=== PATIENT | female | born 1965 | race Caucasian/White ===

== ENCOUNTER 2019-05-22 14:22 | Inpatient (IN) | payer BC ==
[2019-05-22] MEDS ORDERED: Pantoprazole 40 MG Vial IVPUSH ONE (15:22)
--- NOTE | 2019-05-22 15:27 | EDM.PDOC ---
ED HPI GENERAL MEDICAL PROBLEM - General Chief Complaint: General Stated Complaint: SENT FROM CLINIC FOR BLOOD TRANSFUSION Time Seen by Provider: 05/22/19 15:21 Source of Information: Reports: Patient History Limitations: Reports: No Limitations - History of Present Illness INITIAL COMMENTS - FREE TEXT/NARRATIVE: 54-year-old female presents to the ED with a history of intermittent black tarry stools for the better part of a week. Associated diffuse upper abdominal pain starting last April 14. Started black tarry stools on April 19. On average 2 or 3 black stools per day including this morning. She did not eat last or Tuesday because she felt upset on the stomach. Associated nausea without vomiting. She never did vomit any blood. She has no history of peptic ulcer disease or although she was told in the past that she did have H. pylori infection and was treated with antibiotics many years ago. Intermittent upper abdominal cramping pain as well as intermittent lower abdominal pain this morning. She took milk of magnesia last night to get her bowels working and did have a bowel movement about 0330 and again at 0800 hrs. this morning both of which were dark black in color. The first bowel movement that was black was last Tuesday and it contains a small traces of bright red blood. Of note the patient had an anterior dislocation of her right shoulder on May 01 and has been taking intermittent low doses of Aleve as needed primarily at bedtime to help with the pain. Therefore this could have been the culprit to cause an upper GI bleed. Been taking any of her regular medications due to GI upset. Feeling lightheaded and dizzy today. She attended the clinic family medicine unit in our hospital and was found to have a hemoglobin around 7. She was thus referred to the ED for further evaluation and treatment. Onset: Gradual Onset Date: 05/13/19 (With GI upset and pain and cramps April 14 first noted dark black starry stools on April 19.) Duration: Day(s):, Constant (Stools have been black and tarry since the .) , Intermittent, Waxing/Waning Location: Reports: Abdomen, Other (Abdominal discomfort melena stool) Quality: Reports: Ache (Mostly in the epigastrium with occasional sharp stabbing pains) Severity: Moderate Improves with: Reports: None Worsens with: Reports: None Context: Denies: Activity, Exercise, Lifting, Sick Contact, Trauma, Other Associated Symptoms: Reports: Loss of Appetite, Malaise, Shortness of Breath, Weakness, Other (Mildly lightheaded and dizzy today.). 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 (Has been taking Aleve as needed since dislocation of her anterior shoulder May 01.) - Related Data Allergies Allergy/AdvReac Type Severity Reaction Status Date / Time No Known Allergies Allergy Verified 05/22/19 15:16 Home Meds: Home Meds Ezetimibe 10 mg PO BEDTIME 05/22/19 [History] Pravastatin [Pravachol] 20 mg PO MOWEFR 05/22/19 [History] Past Medical History Cardiovascular History: Reports: High Cholesterol (Hypertriglyceridemia) - Past Surgical History GI Surgical History: Reports: Appendectomy (1982) Social & Family History - Living Situation & Occupation Living situation: Reports: Occupation: Unemployed ED ROS GENERAL - Review of Systems Review Of Systems: See Below Constitutional: Reports: Malaise, Weakness, Fatigue, Decreased Appetite. Denies : Fever, Chills HEENT: Reports: Glasses Respiratory: Reports: Shortness of Breath. Denies: Wheezing, Pleuritic Chest Pain, Cough, Sputum Cardiovascular: Reports: Dyspnea on Exertion. Denies: Chest Pain, Blood Pressure Problem, Claudication, Edema, Lightheadedness, Orthopnea Endocrine: Reports: Fatigue GI/Abdominal: Reports: Abdominal Pain (Intermittent epigastric abdominal pain as well as some diffuse lower abdominal cramping pain), Melena (Stool off and on on a daily basis since last April 19.) : Reports: No Symptoms Musculoskeletal: Reports: No Symptoms Skin: Reports: No Symptoms Neurological: Reports: Dizziness Psychiatric: Reports: No Symptoms Hematologic/Lymphatic: Reports: No Symptoms Immunologic: Reports: No Symptoms ED EXAM, GENERAL - Physical Exam Exam: See Below Exam Limited By: No Limitations General Appearance: Alert, WD/WN, Mild Distress, Other (She is obviously quite pallid in appearance. Temperature is 36.4 with a heart rate of 92 at the bedside respiratory 20 BP 126/77 with a pulse symmetry of 99.) Eye Exam: Bilateral Eye: Other (Patient has white blepharal pallor.) Ears: Normal TMs Throat/Mouth: Normal Inspection, Normal Lips, Normal Teeth, Normal Oropharynx, Other Head: Atraumatic, Normocephalic, Other Neck: Normal Inspection, Supple (No outward signs of head or facial trauma), Non -Tender, Full Range of Motion. No: Lymphadenopathy (L), Lymphadenopathy (R) Respiratory/Chest: No Respiratory Distress, Lungs Clear, Normal Breath Sounds, No Accessory Muscle Use Cardiovascular: Normal Peripheral Pulses, Regular Rate, Rhythm, No Edema, No Gallop, No Murmur, No Rub Peripheral Pulses: 3+: Posterior Tibial (L), Posterior Tibial (R), Dorsalis Pedis (L), Dorsalis Pedis (R) GI/Abdominal: Normal Bowel Sounds, Soft, No Organomegaly, No Abnormal Bruit, No Mass, Pelvis Stable, Tender (He is slightly tender to deep palpation in the epigastrium.) Rectal (Female) Exam: Heme + Stool (Melena stool) Extremities: Normal Inspection, Normal Range of Motion, Non-Tender, No Pedal Edema Neurological: Alert, Oriented, CN II-XII Intact, Normal Cognition, Normal Gait Psychiatric: Normal Affect, Normal Mood Skin Exam: Warm, Dry, Intact, Pallor (Moderate pallor.) Course - Vital Signs Last Recorded V/S: Last Vital Signs Temp 36.4 C 05/22/19 15:02 Pulse 92 05/22/19 15:02 Resp 20 05/22/19 15:02 BP 126/77 05/22/19 15:02 Pulse Ox 99 05/22/19 15:02 Orthostatic Blood Pressure [ 98/65 Standing] Orthostatic Blood Pressure [ 108/67 Sitting] Orthostatic Blood Pressure [ 105/67 Supine] - Orders/Labs/Meds Orders: Active Orders 24 hr Category Date Time Status Admission Status [Patient Status] [ADT] Routine ADT 05/22/19 19:00 Active Orthostatic Vital Signs [RC] ASDIRECTED Care 05/22/19 15:51 Active H.PYLORI ANTIGEN, STOOL [OP] Stat Lab 05/22/19 15:24 Ordered PACKED CELLS [RED BLOOD CELLS LP] [BBK] Stat Lab 05/22/19 16:45 Results TYPE AND SCREEN [BBK] Stat Lab 05/22/19 16:45 Results Dextrose 5%-0.9% NaCl [Dextrose 5%-Normal Saline] 1,000 Med 05/22/19 15:30 Active ml IV ASDIRECTED Pantoprazole [ProTONIX IV] 80 mg Med 05/22/19 15:30 Active Sodium Chloride 0.9% [Normal Saline] 100 ml IV Q10H Transfuse PRBC [Transfuse Red Blood Cells] [COMM] Stat Oth 05/22/19 17:55 Ordered Medication Orders Dextrose/Sodium Chloride (Dextrose 5%-Normal Saline) 1,000 mls @ 500 mls/hr IV ASDIRECTED JESSE Last Admin: 05/22/19 16:37 Dose: 500 mls/hr Pantoprazole Sodium 80 mg/ (Sodium Chloride) 100 mls @ 10 mls/hr IV Q10H [facility] Last Admin: 05/22/19 16:38 Dose: 10 mls/hr Labs: Laboratory Tests 05/22/19 05/22/19 05/22/19 Range/Units 16:45 16:45 16:45 WBC 8.38 (3.98-10.04) K/mm3 RBC 2.56 L (3.98-5.22) M/mm3 Hgb 7.1 L* (11.2-15.7) gm/dl Hct 22.6 L (34.1-44.9) % MCV 88.3 (79.4-94.8) fl MCH 27.7 (25.6-32.2) pg MCHC 31.4 L (32.2-35.5) g/dl RDW Std Deviation 49.6 H (36.4-46.3) fL Plt Count 310 (182-369) K/mm3 MPV 9.2 L (9.4-12.3) fl Neut % (Auto) 50.8 (34.0-71.1) % Lymph % (Auto) 39.0 (19.3-51.7) % [place] % (Auto) 7.4 (4.7-12.5) % Eos % (Auto) 2.0 (0.7-5.8) Baso % (Auto) 0.4 (0.1-1.2) % Neut # (Auto) 4.26 (1.56-6.13) K/mm3 Lymph # (Auto) 3.27 (1.18-3.74) K/mm3 [place] # (Auto) 0.62 H (0.24-0.36) K/mm3 Eos # (Auto) 0.17 (0.04-0.36) K/mm3 Baso # (Auto) 0.03 (0.01-0.08) K/mm3 Manual Slide Review Abnormal smear ESR (0-20) mm/hr PT 10.8 (9.7-12.0) SECONDS INR 0.99 APTT 22 (22-31) SECONDS Sodium 138 (136-145) mEq/L Potassium 3.6 (3.5-5.1) mEq/L Chloride 103 (98-107) mEq/L Carbon Dioxide 26 (21-32) mEq/L Anion Gap 12.6 (5-15) BUN 13 (7-18) mg/dL Creatinine 0.8 (0.55-1.02) mg/dL Est Cr Clr Drug Dosing 77.27 mL/min Estimated GFR (MDRD) > 60 (>60) mL/min BUN/Creatinine Ratio 16.3 (14-18) Glucose 125 H (74-106) mg/dL Calcium 8.5 (8.5-10.1) mg/dL Magnesium 2.2 (1.8-2.4) mg/dl Total Bilirubin 0.3 (0.2-1.0) mg/dL AST 15 (15-37) U/L ALT 25 (14-59) U/L Alkaline Phosphatase 40 L (46-116) U/L Total Protein 6.4 (6.4-8.2) g/dl Albumin 3.3 L (3.4-5.0) g/dl Globulin 3.1 gm/dL Albumin/Globulin Ratio 1.1 (1-2) Lipase 128 (73-393) U/L Urine Color (Yellow) Urine Appearance (Clear) Urine pH (5.0-8.0) Ur Specific [place] (1.005-1.030) Urine Protein (Negative) Urine Glucose (UA) (Negative) Urine Ketones (Negative) Urine Occult Blood (Negative) Urine Nitrite (Negative) Urine Bilirubin (Negative) Urine Urobilinogen (0.2-1.0) Ur Leukocyte Esterase (Negative) Urine RBC (0-5) /hpf Urine WBC (0-5) /hpf Ur Squamous Epith Cells (0-5) /hpf Urine Bacteria (FEW) /hpf Urine Mucus (FEW) /hpf Blood Type Gel Antibody Screen Crossmatch 05/22/19 05/22/19 05/22/19 Range/Units 16:45 16:45 17:30 WBC (3.98-10.04) K/mm3 RBC (3.98-5.22) M/mm3 Hgb (11.2-15.7) gm/dl Hct (34.1-44.9) % MCV (79.4-94.8) fl MCH (25.6-32.2) pg MCHC (32.2-35.5) g/dl RDW Std Deviation (36.4-46.3) fL Plt Count (182-369) K/mm3 MPV (9.4-12.3) fl Neut % (Auto) (34.0-71.1) % Lymph % (Auto) (19.3-51.7) % [place] % (Auto) (4.7-12.5) % Eos % (Auto) (0.7-5.8) Baso % (Auto) (0.1-1.2) % Neut # (Auto) (1.56-6.13) K/mm3 Lymph # (Auto) (1.18-3.74) K/mm3 [place] # (Auto) (0.24-0.36) K/mm3 Eos # (Auto) (0.04-0.36) K/mm3 Baso # (Auto) (0.01-0.08) K/mm3 Manual Slide Review ESR 22 H (0-20) mm/hr PT (9.7-12.0) SECONDS INR APTT (22-31) SECONDS Sodium (136-145) mEq/L Potassium (3.5-5.1) mEq/L Chloride (98-107) mEq/L Carbon Dioxide (21-32) mEq/L Anion Gap (5-15) BUN (7-18) mg/dL Creatinine (0.55-1.02) mg/dL Est Cr Clr Drug Dosing mL/min Estimated GFR (MDRD) (>60) mL/min BUN/Creatinine Ratio (14-18) Glucose (74-106) mg/dL Calcium (8.5-10.1) mg/dL Magnesium (1.8-2.4) mg/dl Total Bilirubin (0.2-1.0) mg/dL AST (15-37) U/L ALT (14-59) U/L Alkaline Phosphatase (46-116) U/L Total Protein (6.4-8.2) g/dl Albumin (3.4-5.0) g/dl Globulin gm/dL Albumin/Globulin Ratio (1-2) Lipase (73-393) U/L Urine Color Light yellow (Yellow) Urine Appearance Clear (Clear) Urine pH 6.5 (5.0-8.0) Ur Specific [place] 1.020 (1.005-1.030) Urine Protein Negative (Negative) Urine Glucose (UA) Negative (Negative) Urine Ketones Trace H (Negative) Urine Occult Blood Trace-intact H (Negative) Urine Nitrite Negative (Negative) Urine Bilirubin Negative (Negative) Urine Urobilinogen 0.2 (0.2-1.0) Ur Leukocyte Esterase Trace H (Negative) Urine RBC 0-5 (0-5) /hpf Urine WBC 0-5 (0-5) /hpf Ur Squamous Epith Cells 10-20 H (0-5) /hpf Urine Bacteria Rare (FEW) /hpf Urine Mucus Not seen (FEW) /hpf Blood Type O POSITIVE Gel Antibody Screen Negative Crossmatch See Detail Meds: Medications Generic Name Dose Route Start Last Admin Trade Name Freq PRN Reason Stop Dose Admin Dextrose/Sodium Chloride 1,000 mls @ 500 mls/hr 05/22/19 15:30 05/22/19 16:37 Dextrose 5%-Normal Saline IV 500 mls/hr ASDIRECTED JESSE Administration Pantoprazole Sodium 80 mg/ 100 mls @ 10 mls/hr 05/22/19 15:30 05/22/19 16:38 Sodium Chloride IV 10 mls/hr Q10H JESSE Administration Discontinued Medications Generic Name Dose Route Start Last Admin Trade Name Freq PRN Reason Stop Dose Admin Pantoprazole Sodium 40 mg 05/22/19 15:22 05/22/19 16:37 Protonix Iv IVPUSH 05/22/19 15:23 40 mg ONETIME ONE Administration - Radiology Interpretation Free Text/Narrative:: 54-year-old female presents to the ED with a least 5-day history of passage of dark black tarry stools preceded by epigastric abdominal pain by 5 days. Patient has a past history of H. pylori peptic ulcer disease treated with antibiotics many years ago. On April 29 she had an anterior dislocation of her right shoulder and was using Aleve on a as needed basis for pain relief. It appears that she has suffered an upper GI bleed which is persisting as she continues to have black tarry stools for the last 5 days it with a hemoglobin reportedly down in the sevens. - Re-Assessments/Exams Free Text/Narrative Re-Assessment/Exam: 05/22/19 17:08 White blood cell count is normal at 8.38. The auto differential shows 51% neutrophils. Hemoglobin is low at 7.1 with hematocrit of 22.6. MCV is 88.3. Platelet count is 310,000. This was discussed with on-call surgeon Dr. Estevez and she states she is around tomorrow and could perform a upper GI endoscopy on this lady. We will therefore discussed the case with Dr. Tavarez on-call hospitalist with a view to having the patient admitted to the hospital. Due to being on Protonix infusion and the need for blood transfusion she will be admitted to the intensive care unit. 05/22/19 17:42 Chemistry reveals a sodium of 138 potassium of 3.6 chloride is 103 with a bicarb of 26. Anion gap is 12.6. BUN is 13 with a creatinine of 0.8. GFR is greater than 60. Glucose is 125 calcium is 8.5 magnesium normal at 2.2 liver function is normal. Total protein is 6.4 with an albumin fraction of 3.3. Lipase is 128. Departure - Departure Time of Disposition: 19:03 Disposition: Admitted As Inpatient 65 Condition: Fair Clinical Impression: Upper gastrointestinal bleeding, Hypertriglyceridemia Anemia Qualifiers: Other causes of anemia: acute posthemorrhagic - Discharge Information *PRESCRIPTION DRUG MONITORING PROGRAM REVIEWED*: Not Applicable *COPY OF PRESCRIPTION DRUG MONITORING REPORT IN PATIENT JACQUES: Not Applicable Referrals: Alek Moralez MD [Primary Care Provider] - Forms: ED Department Discharge Sepsis Event Note - Evaluation Sepsis Screening Result: No Definite Risk - Focused Exam Vital Signs: Vital Signs Temp Pulse Resp BP Pulse Ox 05/22/19 15:02 36.4 C 92 20 126/77 99 Date Exam was Performed: 03/10/20 Time Exam was Performed: 19:03 - My Orders Last 24 Hours: My Active Orders 05/22/19 15:24 H.PYLORI ANTIGEN, STOOL [OP] Stat 05/22/19 15:30 Dextrose 5%-0.9% NaCl [Dextrose 5%-Normal Saline] 1,000 ml IV ASDIRECTED Pantoprazole [ProTONIX IV] 80 mg Sodium Chloride 0.9% [Normal Saline] 100 ml IV Q10H 05/22/19 15:51 Orthostatic Vital Signs [RC] ASDIRECTED 05/22/19 16:45 PACKED CELLS [RED BLOOD CELLS LP] [BBK] Stat TYPE AND SCREEN [BBK] Stat 05/22/19 17:55 Transfuse PRBC [Transfuse Red Blood Cells] [COMM] Stat 05/22/19 19:00 Admission Status [Patient Status] [ADT] Routine - Assessment/Plan Last 24 Hours: My Active Orders 05/22/19 15:24 H.PYLORI ANTIGEN, STOOL [OP] Stat 05/22/19 15:30 Dextrose 5%-0.9% NaCl [Dextrose 5%-Normal Saline] 1,000 ml IV ASDIRECTED Pantoprazole [ProTONIX IV] 80 mg Sodium Chloride 0.9% [Normal Saline] 100 ml IV Q10H 05/22/19 15:51 Orthostatic Vital Signs [RC] ASDIRECTED 05/22/19 16:45 PACKED CELLS [RED BLOOD CELLS LP] [BBK] Stat TYPE AND SCREEN [BBK] Stat 05/22/19 17:55 Transfuse PRBC [Transfuse Red Blood Cells] [COMM] Stat 05/22/19 19:00 Admission Status [Patient Status] [ADT] Routine
[2019-05-22] MEDS ORDERED: Dextrose 5%-0.9% NaCl 1,000 ML IV SCH (15:30)
[2019-05-22] MEDS ORDERED: Pantoprazole 80 MG in Sodium Chloride 0.9% 100 ML IV SCH (15:30)
--- NOTE | 2019-05-22 18:33 | PCM.CONS ---
H&P History of Present Illness - General Date of Service: 05/22/19 - History of Present Illness Initial Comments - Free Text/Narative: Pt presents with history of abdominal pain, with lightheadedness and melena. Pain started 9d ago in the epigastric abdomen and radiated to the back. Pain described as burning. She reports intermittent nausea. Pain was sometimes improved with eating or drinking, intermittently improved with position change. She was seen at an outside clinic for the abdominal pain and discomfort, she was given anti-nausea medication which then induced vomiting. She developed melena and diarrhea about 5 days ago. Recent shoulder dislocation and has been taking aleve. She has a remote history of H. Pylori infection. - Related Data Allergies/Adverse Reactions: Allergies Allergy/AdvReac Type Severity Reaction Status Date / Time No Known Allergies Allergy Verified 05/22/19 15:16 Home Medications: Home Meds Ezetimibe 10 mg PO BEDTIME 05/22/19 [History] Pravastatin [Pravachol] 20 mg PO MOWEFR 05/22/19 [History] Past Medical History Cardiovascular History: Reports: High Cholesterol (Hypertriglyceridemia) - Infectious Disease History Infectious Disease History: Reports: Chicken Pox - Past Surgical History GI Surgical History: Reports: Appendectomy (1982) Social & Family History - Family History Cardiac: Reports: CAD, Heart Failure, Heart Valve Replacement, High Cholesterol , Hypertension Endocrine/Metabolic: Reports: Diabetes, type II Oncologic: Reports: None - Tobacco Use Smoking Status *Q: Never Smoker Second Hand Smoke Exposure: No - Caffeine Use Caffeine Use: Reports: Soda, Tea - Recreational Drug Use Recreational Drug Use: No - Living Situation & Occupation Living situation: Reports: Occupation: Unemployed H&P Review of Systems - Review of Systems: Review Of Systems: See Below General: Reports: Chills (associated with the pain), Weight Loss HEENT: Reports: No Symptoms Pulmonary: Reports: Cough Cardiovascular: Reports: Palpitations Gastrointestinal: Reports: Abdominal Pain, Black Stool, Diarrhea Genitourinary: Reports: No Symptoms Musculoskeletal: Denies: Neck Pain Skin: Reports: No Symptoms Neurological: Reports: Dizziness Hematologic/Lymphatic: Denies: Anemia Exam - Exam Exam: See Below - Vital Signs Vital Signs: Last Vital Signs Temp 36.4 C 05/22/19 15:02 Pulse 92 05/22/19 15:02 Resp 20 05/22/19 15:02 BP 126/77 05/22/19 15:02 Pulse Ox 99 05/22/19 15:02 Orthostatic Blood Pressure [ 98/65 Standing] Orthostatic Blood Pressure [ 108/67 Sitting] Orthostatic Blood Pressure [ 105/67 Supine] Weight: 77.111 kg - Exam Quality Assessment: No: Supplemental Oxygen General: Alert, Oriented HEENT: Conjunctiva Clear, EOMI Neck: Supple Lungs: Normal Respiratory Effort Cardiovascular: Regular Rate, Regular Rhythm GI/Abdominal Exam: Soft, No Distention, Tender (minimal in epigastric) Extremities: Normal Inspection, No Pedal Edema Peripheral Pulses: 2+: Dorsalis Pedis (L), Dorsalis Pedis (R) Skin: Warm, Dry, Intact Neurological: Cranial Nerves Intact Neuro Extensive - Mental Status: Normal Mood/Affect, Memory Intact - Patient Data Lab Results Last 24 hrs: Laboratory Results - last 24 hr 05/22/19 05/22/19 05/22/19 Range/Units 16:45 16:45 16:45 WBC 8.38 (3.98-10.04) K/mm3 RBC 2.56 L (3.98-5.22) M/mm3 Hgb 7.1 L* (11.2-15.7) gm/dl Hct 22.6 L (34.1-44.9) % MCV 88.3 (79.4-94.8) fl MCH 27.7 (25.6-32.2) pg MCHC 31.4 L (32.2-35.5) g/dl RDW Std Deviation 49.6 H (36.4-46.3) fL Plt Count 310 (182-369) K/mm3 MPV 9.2 L (9.4-12.3) fl Neut % (Auto) 50.8 (34.0-71.1) % Lymph % (Auto) 39.0 (19.3-51.7) % [place] % (Auto) 7.4 (4.7-12.5) % Eos % (Auto) 2.0 (0.7-5.8) Baso % (Auto) 0.4 (0.1-1.2) % Neut # (Auto) 4.26 (1.56-6.13) K/mm3 Lymph # (Auto) 3.27 (1.18-3.74) K/mm3 [place] # (Auto) 0.62 H (0.24-0.36) K/mm3 Eos # (Auto) 0.17 (0.04-0.36) K/mm3 Baso # (Auto) 0.03 (0.01-0.08) K/mm3 Manual Slide Review Abnormal smear ESR (0-20) mm/hr PT 10.8 (9.7-12.0) SECONDS INR 0.99 APTT 22 (22-31) SECONDS Sodium 138 (136-145) mEq/L Potassium 3.6 (3.5-5.1) mEq/L Chloride 103 (98-107) mEq/L Carbon Dioxide 26 (21-32) mEq/L Anion Gap 12.6 (5-15) BUN 13 (7-18) mg/dL Creatinine 0.8 (0.55-1.02) mg/dL Est Cr Clr Drug Dosing 77.27 mL/min Estimated GFR (MDRD) > 60 (>60) mL/min BUN/Creatinine Ratio 16.3 (14-18) Glucose 125 H (74-106) mg/dL Calcium 8.5 (8.5-10.1) mg/dL Magnesium 2.2 (1.8-2.4) mg/dl Total Bilirubin 0.3 (0.2-1.0) mg/dL AST 15 (15-37) U/L ALT 25 (14-59) U/L Alkaline Phosphatase 40 L (46-116) U/L Total Protein 6.4 (6.4-8.2) g/dl Albumin 3.3 L (3.4-5.0) g/dl Globulin 3.1 gm/dL Albumin/Globulin Ratio 1.1 (1-2) Lipase 128 (73-393) U/L Urine Color (Yellow) Urine Appearance (Clear) Urine pH (5.0-8.0) Ur Specific [place] (1.005-1.030) Urine Protein (Negative) Urine Glucose (UA) (Negative) Urine Ketones (Negative) Urine Occult Blood (Negative) Urine Nitrite (Negative) Urine Bilirubin (Negative) Urine Urobilinogen (0.2-1.0) Ur Leukocyte Esterase (Negative) Urine RBC (0-5) /hpf Urine WBC (0-5) /hpf Ur Squamous Epith Cells (0-5) /hpf Urine Bacteria (FEW) /hpf Urine Mucus (FEW) /hpf Blood Type Crossmatch 05/22/19 05/22/19 05/22/19 Range/Units 16:45 16:45 17:30 WBC (3.98-10.04) K/mm3 RBC (3.98-5.22) M/mm3 Hgb (11.2-15.7) gm/dl Hct (34.1-44.9) % MCV (79.4-94.8) fl MCH (25.6-32.2) pg MCHC (32.2-35.5) g/dl RDW Std Deviation (36.4-46.3) fL Plt Count (182-369) K/mm3 MPV (9.4-12.3) fl Neut % (Auto) (34.0-71.1) % Lymph % (Auto) (19.3-51.7) % [place] % (Auto) (4.7-12.5) % Eos % (Auto) (0.7-5.8) Baso % (Auto) (0.1-1.2) % Neut # (Auto) (1.56-6.13) K/mm3 Lymph # (Auto) (1.18-3.74) K/mm3 [place] # (Auto) (0.24-0.36) K/mm3 Eos # (Auto) (0.04-0.36) K/mm3 Baso # (Auto) (0.01-0.08) K/mm3 Manual Slide Review ESR 22 H (0-20) mm/hr PT (9.7-12.0) SECONDS INR APTT (22-31) SECONDS Sodium (136-145) mEq/L Potassium (3.5-5.1) mEq/L Chloride (98-107) mEq/L Carbon Dioxide (21-32) mEq/L Anion Gap (5-15) BUN (7-18) mg/dL Creatinine (0.55-1.02) mg/dL Est Cr Clr Drug Dosing mL/min Estimated GFR (MDRD) (>60) mL/min BUN/Creatinine Ratio (14-18) Glucose (74-106) mg/dL Calcium (8.5-10.1) mg/dL Magnesium (1.8-2.4) mg/dl Total Bilirubin (0.2-1.0) mg/dL AST (15-37) U/L ALT (14-59) U/L Alkaline Phosphatase (46-116) U/L Total Protein (6.4-8.2) g/dl Albumin (3.4-5.0) g/dl Globulin gm/dL Albumin/Globulin Ratio (1-2) Lipase (73-393) U/L Urine Color Light yellow (Yellow) Urine Appearance Clear (Clear) Urine pH 6.5 (5.0-8.0) Ur Specific [place] 1.020 (1.005-1.030) Urine Protein Negative (Negative) Urine Glucose (UA) Negative (Negative) Urine Ketones Trace H (Negative) Urine Occult Blood Trace-intact H (Negative) Urine Nitrite Negative (Negative) Urine Bilirubin Negative (Negative) Urine Urobilinogen 0.2 (0.2-1.0) Ur Leukocyte Esterase Trace H (Negative) Urine RBC 0-5 (0-5) /hpf Urine WBC 0-5 (0-5) /hpf Ur Squamous Epith Cells 10-20 H (0-5) /hpf Urine Bacteria Rare (FEW) /hpf Urine Mucus Not seen (FEW) /hpf Blood Type O POSITIVE Crossmatch See Detail Result Diagrams: 05/22/19 16:45 05/22/19 16:45 Sepsis Event Note - Evaluation Sepsis Screening Result: No Definite Risk - Focused Exam Vital Signs: Vital Signs Temp Pulse Resp BP Pulse Ox 05/22/19 15:02 36.4 C 92 20 126/77 99 Date Exam was Performed: 05/22/19 Time Exam was Performed: 18:35 *Q Meaningful Use (ADM) - VTE Risk Assess *Q Each Risk Factor Represents 1 Point: Age 41 - 59 years, Minor Surgery Planned Total Score 1 Point Risk Factors: 2 Consult PN Assessment/Plan POD#: 0 Procedures: Procedures ASSAY OF BLOOD/URIC ACID (09/15/18) ASSAY THYROID STIM HORMONE (09/15/18) C-REACTIVE PROTEIN (09/15/18) COMPLETE CBC W/AUTO DIFF WBC (09/15/18) COMPREHEN METABOLIC PANEL (09/15/18) GLYCOSYLATED HEMOGLOBIN TEST (09/15/18) LIPID PANEL (01/08/19) MRI LUMBAR SPINE W/O DYE (05/27/16) ROUTINE VENIPUNCTURE (01/08/19) URINALYSIS AUTO W/O SCOPE (01/08/19) URINALYSIS AUTO W/SCOPE (09/15/18) VITAMIN B-12 (09/15/18) (1) Upper GI bleed SNOMED Code(s): 79286001 Code(s): K92.2 - GASTROINTESTINAL HEMORRHAGE, UNSPECIFIED Current Visit: Yes Problem List Initiated/Reviewed/Updated: Yes Plan: 54 y/o lady with a GI bleed - continue NPO with IVF resuscitation - transfuse PRBC as needed per primary team - protonix IV - will plan for EGD in am Aminata Blanchard MD General Surgery
[2019-05-22] MEDS ORDERED: Morphine 2 MG/ML Syringe IVPUSH PRN (19:08)
--- NOTE | 2019-05-22 19:41 | PCM.HP.2 ---
H&P History of Present Illness - General Date of Service: 05/22/19 Admit Problem/Dx: Admission Diagnosis/Problem Admission Diagnosis/Problem Upper gastrointestinal hemorrhage - History of Present Illness Initial Comments - Free Text/Narative: This is a 54 year old female with past medical history of DLD who comes to the ED complaining of black stools since Tuesday of last week, 5 days. As per patient she was in her usual state of health up until May 12 when she started having severe epigastric pain, graded 10/10, radiating to lower hemiabdomen and back, described as "burning". Pain was mainly associated with intermittent nausea but no other symptoms at that time. The 2 following days she felt OK in the AM, was able to get up and take a shower. Next day she was able to tolerate small bowl of cereal On day 4() she noted that her symptoms were not improving for which she went to walk-in clinic where she was diagnosed with a viral gastroenteritis and prescribed a PRN nausea medication. She went home and took medication, however this produced immediate nausea and she vomited the medication up, made her feel like her stomach was going to explode and foaming at the mouth. She continued to have some burning pain which still got better with getting up and walking. On Day 5( Tuesday) she noted black stools, described as solid initially and then consistency changed and notes water color turned red. she does also note some blood with wiping. 2 days later notes minimal improvement to the point that she was able to eat ( donut/apple sauce/half a burger) without any changes to her pain Yesterday she started feeling lightheaded and with palpitations. She continued to feel "bad" for which she took milk of magnesia, at 3:30AM she had a large BM started out as formed and turned loose, black colored. She noted: - Dislocated her shoulder about 1 week ago and was taking aleve intermittently for pain at least once a day - She had some improvement with voiding urine, also with getting up from laying position. - She has some shills with the pain as well as hot flashes - Dark colored urine which cleared up with fluids last week - Related Data Allergies/Adverse Reactions: Allergies Allergy/AdvReac Type Severity Reaction Status Date / Time [id number] Reductase Allergy Muscle Verified 03/10/20 19:48 Inhibitor Aches Home Medications: Home Meds Ezetimibe 10 mg PO BEDTIME 05/22/19 [History] Pravastatin [Pravachol] 20 mg PO MOWEFR 05/22/19 [History] Past Medical History Cardiovascular History: Reports: High Cholesterol (Hypertriglyceridemia) - Infectious Disease History Infectious Disease History: Reports: Chicken Pox - Past Surgical History GI Surgical History: Reports: Appendectomy (1982) Social & Family History - Family History Family Medical History: Noncontributory Cardiac: Reports: CAD, Heart Failure, Heart Valve Replacement, High Cholesterol , Hypertension Endocrine/Metabolic: Reports: Diabetes, type II Oncologic: Reports: None - Tobacco Use Smoking Status *Q: Never Smoker Second Hand Smoke Exposure: No - Caffeine Use Caffeine Use: Reports: Soda, Tea - Recreational Drug Use Recreational Drug Use: No - Living Situation & Occupation Living situation: Reports: Occupation: Unemployed H&P Review of Systems - Review of Systems: Review Of Systems: See Below General: Reports: Chills, Decreased Appetite, Weight Loss (7lbs). Denies: Fever , Malaise, Weakness, Fatigue, Night Sweats, Diaphoresis HEENT: Denies: Contact Lenses, Dysphasia, Ear Pain, Eye Pain, Glasses, Headaches , Hearing Changes, Rhinitis, Post Nasal Drip, Sinus Congestion, Sore Throat, Vertigo, Visual Changes Pulmonary: Reports: Cough. Denies: Shortness of Breath, Wheezing, Pleuritic Chest Pain, Sputum, Hemoptysis Cardiovascular: Reports: Palpitations, Lightheadedness. Denies: Chest Pain, Dyspnea on Exertion, Orthopnea, PND, Edema, Syncope, Claudication, Blood Pressure Problem Gastrointestinal: Reports: Abdominal Pain, Anorexia, Diarrhea, Decreased Appetite, Distension, Flatus (and burping), Hematochezia, Melena, Nausea, Vomiting. Denies: Constipation, Difficulty Swallowing, Hematemesis, Mucous in Stool, Stool Incontinence Genitourinary: Reports: Abnormal Menses (every 1-3 months with heavier flow). Denies: Dysuria, Frequency, Burning, Pain, Urgency, Incontinence, Hematuria, Retention, Discharge, Dysmenorrhea, Flank Pain Musculoskeletal: Reports: Shoulder Pain (dislocated her shoulder about 1 week ago), Joint Pain. Denies: Neck Pain, Arm Pain, Back Pain, Hand Pain, Leg Pain, Foot Pain, Joint Swelling, Muscle Pain, Muscle Stiffness Skin: Reports: Pallor. Denies: Cyanosis, Jaundice, Mottled, Diaphoresis, Dryness, Bruising, Pruritis, Rash, Erythema, Wound, Burn(s), Change in Color, Change in Hair/Nails, Lesions, Lumps, Urticaria Psychiatric: Denies: Confusion, Depression, Mood Lability, Anxiety Neurological: Denies: Confusion, Dizziness, Headache, Numbness, Paresthesia, Pre -Existing Deficit, Seizure, Syncope, Tingling, Tremors Hematologic/Lymphatic: Reports: Other (Abnormal meses (heavier flow); donates blood frequently, last year x3, has not donated this year) Exam - Exam Exam: See Below - Vital Signs Vital Signs: Last Vital Signs Temp 97.5 F 05/22/19 15:02 Pulse 92 05/22/19 15:02 Resp 20 05/22/19 15:02 BP 126/77 05/22/19 15:02 Pulse Ox 99 05/22/19 15:02 Orthostatic Blood Pressure [ 98/65 Standing] Orthostatic Blood Pressure [ 108/67 Sitting] Orthostatic Blood Pressure [ 105/67 Supine] Weight: 77.111 kg - Exam Quality Assessment: No: Supplemental Oxygen, Central Line/PICC, Urinary Catheter , DVT Prophylaxis, Skin Breakdown, Restraints General: Alert, Oriented, Cooperative. No: Mild Distress, Moderate Distress, Severe Distress HEENT: Conjunctiva Clear, EACs Clear, EOMI, Hearing Intact, Mucosa Moist & [place] , Nares Patent, Normal Nasal Septum, Posterior Pharynx Clear, Pupils Equal, Pupils Reactive Neck: Supple, Trachea Midline, +2 Carotid Pulse wo Bruit, Full Range of Motion. No: Lymphadenopathy Lungs: Clear to Auscultation, Normal Respiratory Effort. No: Decreased Breath Sounds, Crackles, Rales, Rhonchi, Rub, Stridor, Wheezing Cardiovascular: Regular Rhythm, Gallop/S3. No: Systolic Murmur, Diastolic Murmur, Gallop/S4 GI/Abdominal Exam: Normal Bowel Sounds, Soft, Non-Tender, No Organomegaly, No Distention, No Abnormal Bruit. No: Hernia, Mass Back Exam: Normal Inspection. No: CVA Tenderness (L), CVA Tenderness (R), Muscle Spasm, Paraspinal Tenderness Extremities: Normal Inspection, Limited Range of Motion (right shoulder dislocation prior with pain on movement) Peripheral Pulses: 2+: Radial (L), Radial (R), Dorsalis Pedis (L), Dorsalis Pedis (R) Skin: Warm, Dry - Patient Data Result Diagrams: 05/22/19 19:25 05/22/19 16:45 Sepsis Event Note - Evaluation Sepsis Screening Result: No Definite Risk - Focused Exam Vital Signs: Vital Signs Temp Pulse Resp BP Pulse Ox 05/22/19 15:02 97.5 F 92 20 126/77 99 Date Exam was Performed: 05/22/19 Time Exam was Performed: 20:06 - Problem List (1) Upper GI bleed SNOMED Code(s): 25894706 ICD Code: K92.2 - GASTROINTESTINAL HEMORRHAGE, UNSPECIFIED Status: Acute Current Visit: Yes (2) Acute posthemorrhagic anemia SNOMED Code(s): 366584860 ICD Code: D62 - ACUTE POSTHEMORRHAGIC ANEMIA Status: Acute Current Visit : Yes (3) History of Helicobacter pylori infection SNOMED Code(s): 20462000450944836 ICD Code: Z86.19 - PERSONAL HISTORY OF OTHER INFECTIOUS AND PARASITIC DISEASES Status: Acute Current Visit: Yes (4) Dyslipidemia SNOMED Code(s): 388434013 ICD Code: E78.5 - HYPERLIPIDEMIA, UNSPECIFIED Status: Acute Current Visit : Yes Problem List Initiated/Reviewed/Updated: Yes Assessment/Plan Comment:: Upper GI bleed Acute posthemorrhagic anemia History of Helicobacter pylori infection Comes in with black stools and abdominal pain for 5 days, never happened before Associated with lightheadedness Previous colonoscopy 5 years ago with removal of some polyps, told to return in 5 years Frequent blood donor, x3 last year, no donations this year Used to be on biweekly iron supplementation--> discontinued by PCP 03/2019 Hb in March labs Recent shoulder dislocation for which she has been taking Aleve at least once a day as well as Tylenol Diagnosed with H. pylori infection approximately 10 years ago, treated but eradication was not confirmed Denies any history of hemorrhoids Menses has increased in flow but has been irregular for almost a year, every 1- 3 months--> LMP 03/26-03/29--> available outpatient blood work on 03/29 No family history of cancer 1 prior abdominal surgery, appendectomy >20 years ago Never smoker and very seldom drinker (1-2 beers/week) Admission Hb 7.1 PLAN - Pantoprazole 40mg IV Q12h - Scheduled CBC every 6 hours - Transfuse if hemoglobin less than 7 - Surgery consult - NPO until procedure Dyslipidemia No acute issues Unable to tolerate statins due to myalgias On Pravastatin 2/week and Ezetimibe PLAN - Continue once able to take PO PROPHYLAXIS DVT- compression stockings, pharmacologic contraindicated due to active bleed GI- scheduled pantoprazole for primary problem CODE STATUS: FULL CODE DISPOSITION: Patient will be admitted on scheduled IV Protonix, surgery consulted and will scope patient in AM. SOCIAL: She lives in [place], in a house with her Never smoker Seldom drinks 1-2 beers/week PCP is Dr. Bal - Mortality Measure Prognosis:: Good
[2019-05-22] MEDS: Lactated Ringers 1,000 ML IV SCH (20:01)
[2019-05-22] MEDS ORDERED: Sodium Chloride 0.9% 250 ML ONE (20:11)
[2019-05-22] MEDS ORDERED: Sodium Chloride 0.9% 250 ML IV ONE (20:45)
[2019-05-22] MEDS: Pantoprazole 40 MG Vial IV SCH (20:53)
[2019-05-23] MEDS: Lactated Ringers 1,000 ML IV SCH ×2 (04:05→18:43)
--- NOTE | 2019-05-23 08:03 | PCM.CONSN ---
- General Info Date of Service: 05/23/19 Subjective Update: Pt feeling well this am. Dizziness resolved. Pt had transfusion of one unit PRBC overnight. Denies any further melena episodes. - Patient Data Vitals - Most Recent: Last Vital Signs Temp 36.2 C 05/23/19 04:00 Pulse 64 05/23/19 06:00 Resp 18 05/23/19 04:00 BP 106/61 05/23/19 06:00 Pulse Ox 97 05/23/19 06:00 Orthostatic Blood Pressure [ 98/65 Standing] Orthostatic Blood Pressure [ 108/67 Sitting] Orthostatic Blood Pressure [ 105/67 Supine] Weight - Most Recent: 92.442 kg I&O - Last 24 Hours: Intake & Output 05/22/19 05/23/19 05/23/19 22:59 06:59 14:59 Intake Total 327 1102 Output Total 400 750 Balance -73 352 Lab Results Last 24 Hours: Laboratory Results - last 24 hr 05/22/19 05/22/19 05/22/19 Range/Units 16:45 16:45 16:45 WBC 8.38 (3.98-10.04) K/mm3 RBC 2.56 L (3.98-5.22) M/mm3 Hgb 7.1 L* (11.2-15.7) gm/dl Hct 22.6 L (34.1-44.9) % MCV 88.3 (79.4-94.8) fl MCH 27.7 (25.6-32.2) pg MCHC 31.4 L (32.2-35.5) g/dl RDW Std Deviation 49.6 H (36.4-46.3) fL Plt Count 310 (182-369) K/mm3 MPV 9.2 L (9.4-12.3) fl Neut % (Auto) 50.8 (34.0-71.1) % Lymph % (Auto) 39.0 (19.3-51.7) % [place] % (Auto) 7.4 (4.7-12.5) % Eos % (Auto) 2.0 (0.7-5.8) Baso % (Auto) 0.4 (0.1-1.2) % Neut # (Auto) 4.26 (1.56-6.13) K/mm3 Lymph # (Auto) 3.27 (1.18-3.74) K/mm3 [place] # (Auto) 0.62 H (0.24-0.36) K/mm3 Eos # (Auto) 0.17 (0.04-0.36) K/mm3 Baso # (Auto) 0.03 (0.01-0.08) K/mm3 Neutrophils % (Manual) (40-60) % Band Neutrophils % (0-10) % Lymphocytes % (Manual) (20-40) % Atypical Lymphs % % Monocytes % (Manual) (2-10) % Eosinophils % (Manual) (0.7-5.8) % Basophils % (Manual) (0.1-1.2) Manual Slide Review Abnormal smear Platelet Estimate Polychromasia Hypochromasia RBC Morph Comment ESR (0-20) mm/hr PT 10.8 (9.7-12.0) SECONDS INR 0.99 APTT 22 (22-31) SECONDS Sodium 138 (136-145) mEq/L Potassium 3.6 (3.5-5.1) mEq/L Chloride 103 (98-107) mEq/L Carbon Dioxide 26 (21-32) mEq/L Anion Gap 12.6 (5-15) BUN 13 (7-18) mg/dL Creatinine 0.8 (0.55-1.02) mg/dL Est Cr Clr Drug Dosing 77.27 mL/min Estimated GFR (MDRD) > 60 (>60) mL/min BUN/Creatinine Ratio 16.3 (14-18) Glucose 125 H (74-106) mg/dL Calcium 8.5 (8.5-10.1) mg/dL Phosphorus (2.6-4.7) mg/dL Magnesium 2.2 (1.8-2.4) mg/dl Total Bilirubin 0.3 (0.2-1.0) mg/dL AST 15 (15-37) U/L ALT 25 (14-59) U/L Alkaline Phosphatase 40 L (46-116) U/L Total Protein 6.4 (6.4-8.2) g/dl Albumin 3.3 L (3.4-5.0) g/dl Globulin 3.1 gm/dL Albumin/Globulin Ratio 1.1 (1-2) Lipase 128 (73-393) U/L Urine Color (Yellow) Urine Appearance (Clear) Urine pH (5.0-8.0) Ur Specific [place] (1.005-1.030) Urine Protein (Negative) Urine Glucose (UA) (Negative) Urine Ketones (Negative) Urine Occult Blood (Negative) Urine Nitrite (Negative) Urine Bilirubin (Negative) Urine Urobilinogen (0.2-1.0) Ur Leukocyte Esterase (Negative) Urine RBC (0-5) /hpf Urine WBC (0-5) /hpf Ur Squamous Epith Cells (0-5) /hpf Urine Bacteria (FEW) /hpf Urine Mucus (FEW) /hpf Blood Type Gel Antibody Screen Crossmatch 05/22/19 05/22/19 05/22/19 Range/Units 16:45 16:45 17:30 WBC (3.98-10.04) K/mm3 RBC (3.98-5.22) M/mm3 Hgb (11.2-15.7) gm/dl Hct (34.1-44.9) % MCV (79.4-94.8) fl MCH (25.6-32.2) pg MCHC (32.2-35.5) g/dl RDW Std Deviation (36.4-46.3) fL Plt Count (182-369) K/mm3 MPV (9.4-12.3) fl Neut % (Auto) (34.0-71.1) % Lymph % (Auto) (19.3-51.7) % [place] % (Auto) (4.7-12.5) % Eos % (Auto) (0.7-5.8) Baso % (Auto) (0.1-1.2) % Neut # (Auto) (1.56-6.13) K/mm3 Lymph # (Auto) (1.18-3.74) K/mm3 [place] # (Auto) (0.24-0.36) K/mm3 Eos # (Auto) (0.04-0.36) K/mm3 Baso # (Auto) (0.01-0.08) K/mm3 Neutrophils % (Manual) (40-60) % Band Neutrophils % (0-10) % Lymphocytes % (Manual) (20-40) % Atypical Lymphs % % Monocytes % (Manual) (2-10) % Eosinophils % (Manual) (0.7-5.8) % Basophils % (Manual) (0.1-1.2) Manual Slide Review Platelet Estimate Polychromasia Hypochromasia RBC Morph Comment ESR 22 H (0-20) mm/hr PT (9.7-12.0) SECONDS INR APTT (22-31) SECONDS Sodium (136-145) mEq/L Potassium (3.5-5.1) mEq/L Chloride (98-107) mEq/L Carbon Dioxide (21-32) mEq/L Anion Gap (5-15) BUN (7-18) mg/dL Creatinine (0.55-1.02) mg/dL Est Cr Clr Drug Dosing mL/min Estimated GFR (MDRD) (>60) mL/min BUN/Creatinine Ratio (14-18) Glucose (74-106) mg/dL Calcium (8.5-10.1) mg/dL Phosphorus (2.6-4.7) mg/dL Magnesium (1.8-2.4) mg/dl Total Bilirubin (0.2-1.0) mg/dL AST (15-37) U/L ALT (14-59) U/L Alkaline Phosphatase (46-116) U/L Total Protein (6.4-8.2) g/dl Albumin (3.4-5.0) g/dl Globulin gm/dL Albumin/Globulin Ratio (1-2) Lipase (73-393) U/L Urine Color Light yellow (Yellow) Urine Appearance Clear (Clear) Urine pH 6.5 (5.0-8.0) Ur Specific [place] 1.020 (1.005-1.030) Urine Protein Negative (Negative) Urine Glucose (UA) Negative (Negative) Urine Ketones Trace H (Negative) Urine Occult Blood Trace-intact H (Negative) Urine Nitrite Negative (Negative) Urine Bilirubin Negative (Negative) Urine Urobilinogen 0.2 (0.2-1.0) Ur Leukocyte Esterase Trace H (Negative) Urine RBC 0-5 (0-5) /hpf Urine WBC 0-5 (0-5) /hpf Ur Squamous Epith Cells 10-20 H (0-5) /hpf Urine Bacteria Rare (FEW) /hpf Urine Mucus Not seen (FEW) /hpf Blood Type O POSITIVE Gel Antibody Screen Negative Crossmatch See Detail 03/12/3105/22/19 05/23/19 Range/Units 19:25 23:45 04:12 WBC 8.23 (3.98-10.04) K/mm3 RBC 2.31 L (3.98-5.22) M/mm3 Hgb 6.4 L* 7.4 L (11.2-15.7) gm/dl Hct 20.3 L (34.1-44.9) % MCV 87.9 (79.4-94.8) fl MCH 27.7 (25.6-32.2) pg MCHC 31.5 L (32.2-35.5) g/dl RDW Std Deviation 48.6 H (36.4-46.3) fL Plt Count 273 (182-369) K/mm3 MPV 8.6 L (9.4-12.3) fl Neut % (Auto) (34.0-71.1) % Lymph % (Auto) (19.3-51.7) % [place] % (Auto) (4.7-12.5) % Eos % (Auto) (0.7-5.8) Baso % (Auto) (0.1-1.2) % Neut # (Auto) (1.56-6.13) K/mm3 Lymph # (Auto) (1.18-3.74) K/mm3 [place] # (Auto) (0.24-0.36) K/mm3 Eos # (Auto) (0.04-0.36) K/mm3 Baso # (Auto) (0.01-0.08) K/mm3 Neutrophils % (Manual) (40-60) % Band Neutrophils % (0-10) % Lymphocytes % (Manual) (20-40) % Atypical Lymphs % % Monocytes % (Manual) (2-10) % Eosinophils % (Manual) (0.7-5.8) % Basophils % (Manual) (0.1-1.2) Manual Slide Review Platelet Estimate Polychromasia Hypochromasia RBC Morph Comment ESR (0-20) mm/hr PT (9.7-12.0) SECONDS INR APTT (22-31) SECONDS Sodium (136-145) mEq/L Potassium (3.5-5.1) mEq/L Chloride (98-107) mEq/L Carbon Dioxide (21-32) mEq/L Anion Gap (5-15) BUN (7-18) mg/dL Creatinine (0.55-1.02) mg/dL Est Cr Clr Drug Dosing mL/min Estimated GFR (MDRD) (>60) mL/min BUN/Creatinine Ratio (14-18) Glucose (74-106) mg/dL Calcium (8.5-10.1) mg/dL Phosphorus 3.8 (2.6-4.7) mg/dL Magnesium 2.1 (1.8-2.4) mg/dl Total Bilirubin (0.2-1.0) mg/dL AST (15-37) U/L ALT (14-59) U/L Alkaline Phosphatase (46-116) U/L Total Protein (6.4-8.2) g/dl Albumin (3.4-5.0) g/dl Globulin gm/dL Albumin/Globulin Ratio (1-2) Lipase (73-393) U/L Urine Color (Yellow) Urine Appearance (Clear) Urine pH (5.0-8.0) Ur Specific [place] (1.005-1.030) Urine Protein (Negative) Urine Glucose (UA) (Negative) Urine Ketones (Negative) Urine Occult Blood (Negative) Urine Nitrite (Negative) Urine Bilirubin (Negative) Urine Urobilinogen (0.2-1.0) Ur Leukocyte Esterase (Negative) Urine RBC (0-5) /hpf Urine WBC (0-5) /hpf Ur Squamous Epith Cells (0-5) /hpf Urine Bacteria (FEW) /hpf Urine Mucus (FEW) /hpf Blood Type Gel Antibody Screen Crossmatch 05/23/19 Range/Units 04:12 WBC 5.87 (3.98-10.04) K/mm3 RBC 2.54 L (3.98-5.22) M/mm3 Hgb 7.1 L* (11.2-15.7) gm/dl Hct 22.2 L (34.1-44.9) % MCV 87.4 (79.4-94.8) fl MCH 28.0 (25.6-32.2) pg MCHC 32.0 L (32.2-35.5) g/dl RDW Std Deviation 48.8 H (36.4-46.3) fL Plt Count 262 (182-369) K/mm3 MPV 8.9 L (9.4-12.3) fl Neut % (Auto) (34.0-71.1) % Lymph % (Auto) (19.3-51.7) % [place] % (Auto) (4.7-12.5) % Eos % (Auto) (0.7-5.8) Baso % (Auto) (0.1-1.2) % Neut # (Auto) (1.56-6.13) K/mm3 Lymph # (Auto) (1.18-3.74) K/mm3 [place] # (Auto) (0.24-0.36) K/mm3 Eos # (Auto) (0.04-0.36) K/mm3 Baso # (Auto) (0.01-0.08) K/mm3 Neutrophils % (Manual) 42 (40-60) % Band Neutrophils % 0 (0-10) % Lymphocytes % (Manual) 51 H (20-40) % Atypical Lymphs % 0 % Monocytes % (Manual) 3 (2-10) % Eosinophils % (Manual) 3 (0.7-5.8) % Basophils % (Manual) 1 (0.1-1.2) Manual Slide Review Platelet Estimate Adequate Polychromasia 1+ slight Hypochromasia 1+ slight RBC Morph Comment Not Reportable ESR (0-20) mm/hr PT (9.7-12.0) SECONDS INR APTT (22-31) SECONDS Sodium (136-145) mEq/L Potassium (3.5-5.1) mEq/L Chloride (98-107) mEq/L Carbon Dioxide (21-32) mEq/L Anion Gap (5-15) BUN (7-18) mg/dL Creatinine (0.55-1.02) mg/dL Est Cr Clr Drug Dosing mL/min Estimated GFR (MDRD) (>60) mL/min BUN/Creatinine Ratio (14-18) Glucose (74-106) mg/dL Calcium (8.5-10.1) mg/dL Phosphorus (2.6-4.7) mg/dL Magnesium (1.8-2.4) mg/dl Total Bilirubin (0.2-1.0) mg/dL AST (15-37) U/L ALT (14-59) U/L Alkaline Phosphatase (46-116) U/L Total Protein (6.4-8.2) g/dl Albumin (3.4-5.0) g/dl Globulin gm/dL Albumin/Globulin Ratio (1-2) Lipase (73-393) U/L Urine Color (Yellow) Urine Appearance (Clear) Urine pH (5.0-8.0) Ur Specific [place] (1.005-1.030) Urine Protein (Negative) Urine Glucose (UA) (Negative) Urine Ketones (Negative) Urine Occult Blood (Negative) Urine Nitrite (Negative) Urine Bilirubin (Negative) Urine Urobilinogen (0.2-1.0) Ur Leukocyte Esterase (Negative) Urine RBC (0-5) /hpf Urine WBC (0-5) /hpf Ur Squamous Epith Cells (0-5) /hpf Urine Bacteria (FEW) /hpf Urine Mucus (FEW) /hpf Blood Type Gel Antibody Screen Crossmatch Med Orders - Current: Current Medications Lactated Ringer's (Ringers, Lactated) 1,000 mls @ 125 mls/hr IV ASDIRECTED [facility] Last Admin: 05/23/19 04:05 Dose: 125 mls/hr Morphine Sulfate (Morphine) 1 mg IVPUSH Q8H PRN PRN Reason: Pain (severe 7-10) Stop: 05/23/19 19:11 Pantoprazole Sodium (Protonix Iv) 40 mg IV Q12HR [facility] Last Admin: 05/22/19 20:53 Dose: Not Given Discontinued Medications Dextrose/Sodium Chloride (Dextrose 5%-Normal Saline) 1,000 mls @ 500 mls/hr IV ASDIRECTED [facility] Last Admin: 05/22/19 16:37 Dose: 500 mls/hr Pantoprazole Sodium 80 mg/ (Sodium Chloride) 100 mls @ 10 mls/hr IV Q10H [facility] Last Admin: 05/22/19 16:38 Dose: 10 mls/hr Sodium Chloride (Normal Saline) Confirm Administered Dose 250 mls @ as directed .ROUTE .STK-MED ONE Stop: 05/22/19 20:12 Last Admin: 05/22/19 20:53 Dose: Not Given Sodium Chloride (Normal Saline) 250 mls @ 100 mls/hr IV ONETIME ONE Stop: 05/22/19 23:14 Last Admin: 05/22/19 20:23 Dose: 100 mls/hr Pantoprazole Sodium (Protonix Iv) 40 mg IVPUSH ONETIME ONE Stop: 05/22/19 15:23 Last Admin: 05/22/19 16:37 Dose: 40 mg - Exam Quality Assessment: Supplemental Oxygen General: Alert, Oriented HEENT: EOMI Lungs: Normal Respiratory Effort GI/Abdominal Exam: Soft, Non-Tender, No Distention Sepsis Event Note - Evaluation Sepsis Screening Result: No Definite Risk - Focused Exam Vital Signs: Vital Signs Temp Temp Pulse Resp BP BP Pulse Ox 05/23/19 06:00 64 106/61 97 05/23/19 05:59 64 97 05/23/19 05:01 58 L 98 05/23/19 05:00 58 L 102/53 L 97 05/23/19 04:59 62 97 05/23/19 04:01 60 99 05/23/19 04:00 36.2 C 36.2 C 74 18 121/72 121/72 100 05/23/19 03:59 62 100 05/23/19 03:01 63 100 05/23/19 03:00 61 101/54 L 100 05/23/19 02:59 63 100 05/23/19 02:32 70 95/59 L 98 05/23/19 02:31 73 97 05/23/19 02:07 66 93/49 L 92 L 05/23/19 02:06 63 95 05/23/19 02:01 66 93 L 05/23/19 02:00 69 91/54 L 95 05/23/19 01:59 70 94 L 05/23/19 01:01 72 96/54 L 99 05/23/19 01:00 71 99 05/23/19 00:31 70 100/53 L 99 05/23/19 00:30 69 99 05/23/19 00:14 69 100/55 L 100 05/23/19 00:13 72 100 05/23/19 00:01 70 95/53 L 100 05/23/19 00:00 36.4 C 36.4 C 67 18 100/55 L 100/55 L 100 05/22/19 23:31 69 92/52 L 100 05/22/19 23:30 64 100 05/22/19 23:01 67 102/52 L 100 05/22/19 23:00 71 99 05/22/19 22:54 71 104/57 L 100 05/22/19 22:53 72 100 05/22/19 22:31 100/51 L 05/22/19 22:30 81 99 05/22/19 22:16 77 99/55 L 99 05/22/19 22:15 77 100 05/22/19 22:01 74 98 05/22/19 22:00 73 95/52 L 98 05/22/19 21:59 74 99 05/22/19 21:53 77 96 05/22/19 21:51 78 98/53 L 100 05/22/19 21:50 76 100 05/22/19 21:45 71 93/48 L 94 L 05/22/19 21:44 72 90 L 05/22/19 21:30 36.7 C 72 16 95/52 L 95/52 L 95 05/22/19 21:29 71 94 L 05/22/19 21:15 77 102/55 L 91 L 05/22/19 21:14 81 94 L 05/22/19 21:01 77 96 05/22/19 21:00 80 96/58 L 97 05/22/19 20:59 78 99 05/22/19 20:53 36.5 C 16 104/57 L 100 05/22/19 20:45 82 105/55 L 99 05/22/19 20:44 78 99 05/22/19 20:37 76 102/55 L 99 05/22/19 20:36 74 94/64 98 05/22/19 20:35 36.7 C 77 16 102/55 L 99 05/22/19 20:31 79 99 05/22/19 20:20 36.7 C 18 106/57 L 99 Date Exam was Performed: 05/23/19 Time Exam was Performed: 08:02 Consult PN Assessment/Plan Procedures: Procedures ASSAY OF BLOOD/URIC ACID (09/15/18) ASSAY THYROID STIM HORMONE (09/15/18) C-REACTIVE PROTEIN (09/15/18) COMPLETE CBC W/AUTO DIFF WBC (09/15/18) COMPREHEN METABOLIC PANEL (09/15/18) GLYCOSYLATED HEMOGLOBIN TEST (09/15/18) LIPID PANEL (01/08/19) MRI LUMBAR SPINE W/O DYE (05/27/16) ROUTINE VENIPUNCTURE (01/08/19) URINALYSIS AUTO W/O SCOPE (01/08/19) URINALYSIS AUTO W/SCOPE (09/15/18) VITAMIN B-12 (09/15/18) (1) Upper GI bleed SNOMED Code(s): 78044620 Code(s): K92.2 - GASTROINTESTINAL HEMORRHAGE, UNSPECIFIED Current Visit: Yes Problem List Initiated/Reviewed/Updated: Yes My Orders Last 24 Hours: My Active Orders 05/23/19 08:00 Schedule Procedure [COMM] Urgent Plan: 54 y/o lady with a GI bleed - continue NPO with IVF resuscitation - transfuse PRBC as needed per primary team - protonix IV - will plan for EGD later today and will retest for H. pylori infection - will need PPI prophylaxis at discharge Aminata Blanchard MD General Surgery
--- NOTE | 2019-05-23 09:29 | PCM.PREANE ---
Preanesthetic Assessment - Anesthesia/Transfusion/Family Hx Anesthesia History: Prior Anesthesia Without Reaction Family History of Anesthesia Reaction: No Transfusion History: Prior Transfusion Without Reaction Intubation History: Unknown - Review of Systems General: No Symptoms Pulmonary: No Symptoms (ETOH: Q Tuesday/couple beers) Cardiovascular: No Symptoms (Elevated cholesterol) Neurological: No Symptoms Other: Reports: Easy Bleeding (GI Bleed/dark tarrry stools noted/ 05/23/2019 HGB : 8.1), Easy Bruising, Sinus Problem - Physical Assessment NPO Status Date: 05/22/19 NPO Status Time: 15:00 Vital Signs: Last Vital Signs Temp 36.7 C 05/23/19 08:00 Pulse 64 05/23/19 06:00 Resp 16 05/23/19 08:00 BP 124/56 L 05/23/19 08:00 Pulse Ox 100 05/23/19 08:00 Orthostatic Blood Pressure [ 98/65 Standing] Orthostatic Blood Pressure [ 108/67 Sitting] Orthostatic Blood Pressure [ 105/67 Supine] Height: 1.73 m Weight: 92.442 kg ASA Class: 3 Mental Status: Alert & Oriented x3 Airway Class: Mallampati = 2 Dentition: Reports: Normal Dentition, Caries Thyro-Mental Finger Breadths: 3 Mouth Opening Finger Breadths: 3 ROM/Head Extension: Full Lungs: Clear to Auscultation, Normal Respiratory Effort Cardiovascular: Regular Rate, Regular Rhythm, No Murmurs - Lab Values: Laboratory Last Values WBC 5.87 K/mm3 (3.98-10.04) 05/23/19 04:12 RBC 2.54 M/mm3 (3.98-5.22) L 05/23/19 04:12 Hgb 8.1 gm/dl (11.2-15.7) L 05/23/19 08:02 Hct 22.2 % (34.1-44.9) L 05/23/19 04:12 MCV 87.4 fl (79.4-94.8) 05/23/19 04:12 MCH 28.0 pg (25.6-32.2) 05/23/19 04:12 MCHC 32.0 g/dl (32.2-35.5) L 05/23/19 04:12 RDW Std Deviation 48.8 fL (36.4-46.3) H 05/23/19 04:12 Plt Count 262 K/mm3 (182-369) 05/23/19 04:12 MPV 8.9 fl (9.4-12.3) L 05/23/19 04:12 Neut % (Auto) 50.8 % (34.0-71.1) 05/22/19 16:45 Lymph % (Auto) 39.0 % (19.3-51.7) 05/22/19 16:45 [place] % (Auto) 7.4 % (4.7-12.5) 05/22/19 16:45 Eos % (Auto) 2.0 (0.7-5.8) 05/22/19 16:45 Baso % (Auto) 0.4 % (0.1-1.2) 05/22/19 16:45 Neut # (Auto) 4.26 K/mm3 (1.56-6.13) 05/22/19 16:45 Lymph # (Auto) 3.27 K/mm3 (1.18-3.74) 05/22/19 16:45 Ness # (Auto) 0.62 K/mm3 (0.24-0.36) H 05/22/19 16:45 Eos # (Auto) 0.17 K/mm3 (0.04-0.36) 05/22/19 16:45 Baso # (Auto) 0.03 K/mm3 (0.01-0.08) 05/22/19 16:45 Neutrophils % (Manual) 42 % (40-60) 05/23/19 04:12 Band Neutrophils % 0 % (0-10) 05/23/19 04:12 Lymphocytes % (Manual) 51 % (20-40) H 05/23/19 04:12 Atypical Lymphs % 0 % 05/23/19 04:12 Monocytes % (Manual) 3 % (2-10) 05/23/19 04:12 Eosinophils % (Manual) 3 % (0.7-5.8) 05/23/19 04:12 Basophils % (Manual) 1 (0.1-1.2) 05/23/19 04:12 Manual Slide Review Abnormal smear 05/22/19 16:45 Platelet Estimate Adequate 05/23/19 04:12 Polychromasia 1+ slight 05/23/19 04:12 Hypochromasia 1+ slight 05/23/19 04:12 RBC Morph Comment Not Reportable 05/23/19 04:12 ESR 22 mm/hr (0-20) H 05/22/19 16:45 PT 10.8 SECONDS (9.7-12.0) 05/22/19 16:45 INR 0.99 05/22/19 16:45 APTT 22 SECONDS (22-31) 05/22/19 16:45 Sodium 138 mEq/L (136-145) 05/22/19 16:45 Potassium 3.6 mEq/L (3.5-5.1) 05/22/19 16:45 Chloride 103 mEq/L (98-107) 05/22/19 16:45 Carbon Dioxide 26 mEq/L (21-32) 05/22/19 16:45 Anion Gap 12.6 (5-15) 05/22/19 16:45 BUN 13 mg/dL (7-18) 05/22/19 16:45 Creatinine 0.8 mg/dL (0.55-1.02) 05/22/19 16:45 Est Cr Clr Drug Dosing 77.27 mL/min 05/22/19 16:45 Estimated GFR (MDRD) > 60 mL/min (>60) 05/22/19 16:45 BUN/Creatinine Ratio 16.3 (14-18) 05/22/19 16:45 Glucose 125 mg/dL (74-106) H 05/22/19 16:45 Calcium 8.5 mg/dL (8.5-10.1) 05/22/19 16:45 Phosphorus 3.8 mg/dL (2.6-4.7) 05/23/19 04:12 Magnesium 2.1 mg/dl (1.8-2.4) 05/23/19 04:12 Total Bilirubin 0.3 mg/dL (0.2-1.0) 05/22/19 16:45 AST 15 U/L (15-37) 05/22/19 16:45 ALT 25 U/L (14-59) 05/22/19 16:45 Alkaline Phosphatase 40 U/L (46-116) L 05/22/19 16:45 Total Protein 6.4 g/dl (6.4-8.2) 05/22/19 16:45 Albumin 3.3 g/dl (3.4-5.0) L 05/22/19 16:45 Globulin 3.1 gm/dL 05/22/19 16:45 Albumin/Globulin Ratio 1.1 (1-2) 05/22/19 16:45 Lipase 128 U/L (73-393) 05/22/19 16:45 Urine Color Light yellow (Yellow) 05/22/19 17:30 Urine Appearance Clear (Clear) 05/22/19 17:30 Urine pH 6.5 (5.0-8.0) 05/22/19 17:30 Ur Specific [place] 1.020 (1.005-1.030) 05/22/19 17:30 Urine Protein Negative (Negative) 05/22/19 17:30 Urine Glucose (UA) Negative (Negative) 05/22/19 17:30 Urine Ketones Trace (Negative) H 05/22/19 17:30 Urine Occult Blood Trace-intact (Negative) H 05/22/19 17:30 Urine Nitrite Negative (Negative) 05/22/19 17:30 Urine Bilirubin Negative (Negative) 05/22/19 17:30 Urine Urobilinogen 0.2 (0.2-1.0) 05/22/19 17:30 Ur Leukocyte Esterase Trace (Negative) H 05/22/19 17:30 Urine RBC 0-5 /hpf (0-5) 05/22/19 17:30 Urine WBC 0-5 /hpf (0-5) 05/22/19 17:30 Ur Squamous Epith Cells 10-20 /hpf (0-5) H 05/22/19 17:30 Urine Bacteria Rare /hpf (FEW) 05/22/19 17:30 Urine Mucus Not seen /hpf (FEW) 05/22/19 17:30 Blood Type O POSITIVE 05/22/19 16:45 Gel Antibody Screen Negative 05/22/19 16:45 Crossmatch See Detail 05/22/19 17:59 Above labs reviewed and noted and within acceptable ranges to proceed with scheduled procedure. - Allergies Allergies/Adverse Reactions: Allergies Allergy/AdvReac Type Severity Reaction Status Date / Time Qumtzrh-[id number]-Syh Reductase Allergy Muscle Verified 05/22/19 19:48 Inhibitor Aches - Anesthesia Plan Pre-Op Medication Ordered: None - Acknowledgements Anesthesia Type Planned: MAC Pt an Appropriate Candidate for the Planned Anesthesia: Yes Alternatives and Risks of Anesthesia Discussed w Pt/Guardian: Yes Pt/Guardian Understands and Agrees with Anesthesia Plan: Yes PreAnesthesia Questionnaire HEENT History: Reports: Impaired Vision Cardiovascular History: Reports: High Cholesterol (Hypertriglyceridemia) Gastrointestinal History: Reports: Helicobacter Pylori [employer] History: Reports: Musculoskeletal History: Reports: Other (See Below) Other Musculoskeletal History: dislocated R shoulder - Infectious Disease History Infectious Disease History: Reports: Chicken Pox - Past Surgical History GI Surgical History: Reports: Appendectomy (1982) - SUBSTANCE USE Smoking Status *Q: Never Smoker Second Hand Smoke Exposure: No Recreational Drug Use History: No - HOME MEDS Home Medications: Home Meds Ezetimibe 10 mg PO BEDTIME 05/22/19 [History] Pravastatin [Pravachol] 20 mg PO MOWEFR 05/22/19 [History] - CURRENT (IN HOUSE) MEDS Current Meds: Current Medications Lactated Ringer's (Ringers, Lactated) 1,000 mls @ 125 mls/hr IV ASDIRECTED [facility] Last Admin: 05/23/19 04:05 Dose: 125 mls/hr Morphine Sulfate (Morphine) 1 mg IVPUSH Q8H PRN PRN Reason: Pain (severe 7-10) Stop: 05/23/19 19:11 Pantoprazole Sodium (Protonix Iv) 40 mg IV Q12HR [facility] Last Admin: 05/22/19 20:53 Dose: Not Given Discontinued Medications Dextrose/Sodium Chloride (Dextrose 5%-Normal Saline) 1,000 mls @ 500 mls/hr IV ASDIRECTED [facility] Last Admin: 05/22/19 16:37 Dose: 500 mls/hr Pantoprazole Sodium 80 mg/ (Sodium Chloride) 100 mls @ 10 mls/hr IV Q10H [facility] Last Admin: 05/22/19 16:38 Dose: 10 mls/hr Sodium Chloride (Normal Saline) Confirm Administered Dose 250 mls @ as directed .ROUTE .STK-MED ONE Stop: 05/22/19 20:12 Last Admin: 05/22/19 20:53 Dose: Not Given Sodium Chloride (Normal Saline) 250 mls @ 100 mls/hr IV ONETIME ONE Stop: 05/22/19 23:14 Last Admin: 05/22/19 20:23 Dose: 100 mls/hr Pantoprazole Sodium (Protonix Iv) 40 mg IVPUSH ONETIME ONE Stop: 05/22/19 15:23 Last Admin: 05/22/19 16:37 Dose: 40 mg
--- NOTE | 2019-05-23 09:30 | PCM.PN ---
- General Info Date of Service: 05/23/19 - Patient Data Vitals - Most Recent: Last Vital Signs Temp 98.0 F 05/23/19 08:00 Pulse 64 05/23/19 06:00 Resp 16 05/23/19 08:00 BP 124/56 L 05/23/19 08:00 Pulse Ox 100 05/23/19 08:00 Orthostatic Blood Pressure [ 98/65 Standing] Orthostatic Blood Pressure [ 108/67 Sitting] Orthostatic Blood Pressure [ 105/67 Supine] Weight - Most Recent: 92.442 kg I&O - Last 24 Hours: Intake & Output 05/22/19 05/23/19 05/23/19 22:59 06:59 14:59 Intake Total 327 1102 Output Total 400 750 Balance -73 352 Lab Results Last 24 Hours: Laboratory Results - last 24 hr 05/22/19 05/22/19 05/22/19 Range/Units 16:45 16:45 16:45 WBC 8.38 (3.98-10.04) K/mm3 RBC 2.56 L (3.98-5.22) M/mm3 Hgb 7.1 L* (11.2-15.7) gm/dl Hct 22.6 L (34.1-44.9) % MCV 88.3 (79.4-94.8) fl MCH 27.7 (25.6-32.2) pg MCHC 31.4 L (32.2-35.5) g/dl RDW Std Deviation 49.6 H (36.4-46.3) fL Plt Count 310 (182-369) K/mm3 MPV 9.2 L (9.4-12.3) fl Neut % (Auto) 50.8 (34.0-71.1) % Lymph % (Auto) 39.0 (19.3-51.7) % [place] % (Auto) 7.4 (4.7-12.5) % Eos % (Auto) 2.0 (0.7-5.8) Baso % (Auto) 0.4 (0.1-1.2) % Neut # (Auto) 4.26 (1.56-6.13) K/mm3 Lymph # (Auto) 3.27 (1.18-3.74) K/mm3 [place] # (Auto) 0.62 H (0.24-0.36) K/mm3 Eos # (Auto) 0.17 (0.04-0.36) K/mm3 Baso # (Auto) 0.03 (0.01-0.08) K/mm3 Neutrophils % (Manual) (40-60) % Band Neutrophils % (0-10) % Lymphocytes % (Manual) (20-40) % Atypical Lymphs % % Monocytes % (Manual) (2-10) % Eosinophils % (Manual) (0.7-5.8) % Basophils % (Manual) (0.1-1.2) Manual Slide Review Abnormal smear Platelet Estimate Polychromasia Hypochromasia RBC Morph Comment ESR (0-20) mm/hr PT 10.8 (9.7-12.0) SECONDS INR 0.99 APTT 22 (22-31) SECONDS Sodium 138 (136-145) mEq/L Potassium 3.6 (3.5-5.1) mEq/L Chloride 103 (98-107) mEq/L Carbon Dioxide 26 (21-32) mEq/L Anion Gap 12.6 (5-15) BUN 13 (7-18) mg/dL Creatinine 0.8 (0.55-1.02) mg/dL Est Cr Clr Drug Dosing 77.27 mL/min Estimated GFR (MDRD) > 60 (>60) mL/min BUN/Creatinine Ratio 16.3 (14-18) Glucose 125 H (74-106) mg/dL Calcium 8.5 (8.5-10.1) mg/dL Phosphorus (2.6-4.7) mg/dL Magnesium 2.2 (1.8-2.4) mg/dl Total Bilirubin 0.3 (0.2-1.0) mg/dL AST 15 (15-37) U/L ALT 25 (14-59) U/L Alkaline Phosphatase 40 L (46-116) U/L Total Protein 6.4 (6.4-8.2) g/dl Albumin 3.3 L (3.4-5.0) g/dl Globulin 3.1 gm/dL Albumin/Globulin Ratio 1.1 (1-2) Lipase 128 (73-393) U/L Urine Color (Yellow) Urine Appearance (Clear) Urine pH (5.0-8.0) Ur Specific [place] (1.005-1.030) Urine Protein (Negative) Urine Glucose (UA) (Negative) Urine Ketones (Negative) Urine Occult Blood (Negative) Urine Nitrite (Negative) Urine Bilirubin (Negative) Urine Urobilinogen (0.2-1.0) Ur Leukocyte Esterase (Negative) Urine RBC (0-5) /hpf Urine WBC (0-5) /hpf Ur Squamous Epith Cells (0-5) /hpf Urine Bacteria (FEW) /hpf Urine Mucus (FEW) /hpf Blood Type Gel Antibody Screen Crossmatch 05/22/19 05/22/19 05/22/19 Range/Units 16:45 16:45 17:30 WBC (3.98-10.04) K/mm3 RBC (3.98-5.22) M/mm3 Hgb (11.2-15.7) gm/dl Hct (34.1-44.9) % MCV (79.4-94.8) fl MCH (25.6-32.2) pg MCHC (32.2-35.5) g/dl RDW Std Deviation (36.4-46.3) fL Plt Count (182-369) K/mm3 MPV (9.4-12.3) fl Neut % (Auto) (34.0-71.1) % Lymph % (Auto) (19.3-51.7) % [place] % (Auto) (4.7-12.5) % Eos % (Auto) (0.7-5.8) Baso % (Auto) (0.1-1.2) % Neut # (Auto) (1.56-6.13) K/mm3 Lymph # (Auto) (1.18-3.74) K/mm3 [place] # (Auto) (0.24-0.36) K/mm3 Eos # (Auto) (0.04-0.36) K/mm3 Baso # (Auto) (0.01-0.08) K/mm3 Neutrophils % (Manual) (40-60) % Band Neutrophils % (0-10) % Lymphocytes % (Manual) (20-40) % Atypical Lymphs % % Monocytes % (Manual) (2-10) % Eosinophils % (Manual) (0.7-5.8) % Basophils % (Manual) (0.1-1.2) Manual Slide Review Platelet Estimate Polychromasia Hypochromasia RBC Morph Comment ESR 22 H (0-20) mm/hr PT (9.7-12.0) SECONDS INR APTT (22-31) SECONDS Sodium (136-145) mEq/L Potassium (3.5-5.1) mEq/L Chloride (98-107) mEq/L Carbon Dioxide (21-32) mEq/L Anion Gap (5-15) BUN (7-18) mg/dL Creatinine (0.55-1.02) mg/dL Est Cr Clr Drug Dosing mL/min Estimated GFR (MDRD) (>60) mL/min BUN/Creatinine Ratio (14-18) Glucose (74-106) mg/dL Calcium (8.5-10.1) mg/dL Phosphorus (2.6-4.7) mg/dL Magnesium (1.8-2.4) mg/dl Total Bilirubin (0.2-1.0) mg/dL AST (15-37) U/L ALT (14-59) U/L Alkaline Phosphatase (46-116) U/L Total Protein (6.4-8.2) g/dl Albumin (3.4-5.0) g/dl Globulin gm/dL Albumin/Globulin Ratio (1-2) Lipase (73-393) U/L Urine Color Light yellow (Yellow) Urine Appearance Clear (Clear) Urine pH 6.5 (5.0-8.0) Ur Specific [place] 1.020 (1.005-1.030) Urine Protein Negative (Negative) Urine Glucose (UA) Negative (Negative) Urine Ketones Trace H (Negative) Urine Occult Blood Trace-intact H (Negative) Urine Nitrite Negative (Negative) Urine Bilirubin Negative (Negative) Urine Urobilinogen 0.2 (0.2-1.0) Ur Leukocyte Esterase Trace H (Negative) Urine RBC 0-5 (0-5) /hpf Urine WBC 0-5 (0-5) /hpf Ur Squamous Epith Cells 10-20 H (0-5) /hpf Urine Bacteria Rare (FEW) /hpf Urine Mucus Not seen (FEW) /hpf Blood Type O POSITIVE Gel Antibody Screen Negative Crossmatch See Detail 05/22/19 05/22/19 05/23/19 Range/Units 19:25 23:45 04:12 WBC 8.23 (3.98-10.04) K/mm3 RBC 2.31 L (3.98-5.22) M/mm3 Hgb 6.4 L* 7.4 L (11.2-15.7) gm/dl Hct 20.3 L (34.1-44.9) % MCV 87.9 (79.4-94.8) fl MCH 27.7 (25.6-32.2) pg MCHC 31.5 L (32.2-35.5) g/dl RDW Std Deviation 48.6 H (36.4-46.3) fL Plt Count 273 (182-369) K/mm3 MPV 8.6 L (9.4-12.3) fl Neut % (Auto) (34.0-71.1) % Lymph % (Auto) (19.3-51.7) % [place] % (Auto) (4.7-12.5) % Eos % (Auto) (0.7-5.8) Baso % (Auto) (0.1-1.2) % Neut # (Auto) (1.56-6.13) K/mm3 Lymph # (Auto) (1.18-3.74) K/mm3 [place] # (Auto) (0.24-0.36) K/mm3 Eos # (Auto) (0.04-0.36) K/mm3 Baso # (Auto) (0.01-0.08) K/mm3 Neutrophils % (Manual) (40-60) % Band Neutrophils % (0-10) % Lymphocytes % (Manual) (20-40) % Atypical Lymphs % % Monocytes % (Manual) (2-10) % Eosinophils % (Manual) (0.7-5.8) % Basophils % (Manual) (0.1-1.2) Manual Slide Review Platelet Estimate Polychromasia Hypochromasia RBC Morph Comment ESR (0-20) mm/hr PT (9.7-12.0) SECONDS INR APTT (22-31) SECONDS Sodium (136-145) mEq/L Potassium (3.5-5.1) mEq/L Chloride (98-107) mEq/L Carbon Dioxide (21-32) mEq/L Anion Gap (5-15) BUN (7-18) mg/dL Creatinine (0.55-1.02) mg/dL Est Cr Clr Drug Dosing mL/min Estimated GFR (MDRD) (>60) mL/min BUN/Creatinine Ratio (14-18) Glucose (74-106) mg/dL Calcium (8.5-10.1) mg/dL Phosphorus 3.8 (2.6-4.7) mg/dL Magnesium 2.1 (1.8-2.4) mg/dl Total Bilirubin (0.2-1.0) mg/dL AST (15-37) U/L ALT (14-59) U/L Alkaline Phosphatase (46-116) U/L Total Protein (6.4-8.2) g/dl Albumin (3.4-5.0) g/dl Globulin gm/dL Albumin/Globulin Ratio (1-2) Lipase (73-393) U/L Urine Color (Yellow) Urine Appearance (Clear) Urine pH (5.0-8.0) Ur Specific [place] (1.005-1.030) Urine Protein (Negative) Urine Glucose (UA) (Negative) Urine Ketones (Negative) Urine Occult Blood (Negative) Urine Nitrite (Negative) Urine Bilirubin (Negative) Urine Urobilinogen (0.2-1.0) Ur Leukocyte Esterase (Negative) Urine RBC (0-5) /hpf Urine WBC (0-5) /hpf Ur Squamous Epith Cells (0-5) /hpf Urine Bacteria (FEW) /hpf Urine Mucus (FEW) /hpf Blood Type Gel Antibody Screen Crossmatch 05/23/19 05/23/19 Range/Units 04:12 08:02 WBC 5.87 (3.98-10.04) K/mm3 RBC 2.54 L (3.98-5.22) M/mm3 Hgb 7.1 L* 8.1 L (11.2-15.7) gm/dl Hct 22.2 L (34.1-44.9) % MCV 87.4 (79.4-94.8) fl MCH 28.0 (25.6-32.2) pg MCHC 32.0 L (32.2-35.5) g/dl RDW Std Deviation 48.8 H (36.4-46.3) fL Plt Count 262 (182-369) K/mm3 MPV 8.9 L (9.4-12.3) fl Neut % (Auto) (34.0-71.1) % Lymph % (Auto) (19.3-51.7) % [place] % (Auto) (4.7-12.5) % Eos % (Auto) (0.7-5.8) Baso % (Auto) (0.1-1.2) % Neut # (Auto) (1.56-6.13) K/mm3 Lymph # (Auto) (1.18-3.74) K/mm3 [place] # (Auto) (0.24-0.36) K/mm3 Eos # (Auto) (0.04-0.36) K/mm3 Baso # (Auto) (0.01-0.08) K/mm3 Neutrophils % (Manual) 42 (40-60) % Band Neutrophils % 0 (0-10) % Lymphocytes % (Manual) 51 H (20-40) % Atypical Lymphs % 0 % Monocytes % (Manual) 3 (2-10) % Eosinophils % (Manual) 3 (0.7-5.8) % Basophils % (Manual) 1 (0.1-1.2) Manual Slide Review Platelet Estimate Adequate Polychromasia 1+ slight Hypochromasia 1+ slight RBC Morph Comment Not Reportable ESR (0-20) mm/hr PT (9.7-12.0) SECONDS INR APTT (22-31) SECONDS Sodium (136-145) mEq/L Potassium (3.5-5.1) mEq/L Chloride (98-107) mEq/L Carbon Dioxide (21-32) mEq/L Anion Gap (5-15) BUN (7-18) mg/dL Creatinine (0.55-1.02) mg/dL Est Cr Clr Drug Dosing mL/min Estimated GFR (MDRD) (>60) mL/min BUN/Creatinine Ratio (14-18) Glucose (74-106) mg/dL Calcium (8.5-10.1) mg/dL Phosphorus (2.6-4.7) mg/dL Magnesium (1.8-2.4) mg/dl Total Bilirubin (0.2-1.0) mg/dL AST (15-37) U/L ALT (14-59) U/L Alkaline Phosphatase (46-116) U/L Total Protein (6.4-8.2) g/dl Albumin (3.4-5.0) g/dl Globulin gm/dL Albumin/Globulin Ratio (1-2) Lipase (73-393) U/L Urine Color (Yellow) Urine Appearance (Clear) Urine pH (5.0-8.0) Ur Specific [place] (1.005-1.030) Urine Protein (Negative) Urine Glucose (UA) (Negative) Urine Ketones (Negative) Urine Occult Blood (Negative) Urine Nitrite (Negative) Urine Bilirubin (Negative) Urine Urobilinogen (0.2-1.0) Ur Leukocyte Esterase (Negative) Urine RBC (0-5) /hpf Urine WBC (0-5) /hpf Ur Squamous Epith Cells (0-5) /hpf Urine Bacteria (FEW) /hpf Urine Mucus (FEW) /hpf Blood Type Gel Antibody Screen Crossmatch Med Orders - Current: Current Medications Lactated Ringer's (Ringers, Lactated) 1,000 mls @ 125 mls/hr IV ASDIRECTED [facility] Last Admin: 05/23/19 04:05 Dose: 125 mls/hr Morphine Sulfate (Morphine) 1 mg IVPUSH Q8H PRN PRN Reason: Pain (severe 7-10) Stop: 05/23/19 19:11 Pantoprazole Sodium (Protonix Iv) [address] [facility] Last Admin: 05/22/19 20:53 Dose: Not Given Discontinued Medications Dextrose/Sodium Chloride (Dextrose 5%-Normal Saline) 1,000 mls @ 500 mls/hr IV ASDIRECTED [facility] Last Admin: 05/22/19 16:37 Dose: 500 mls/hr Pantoprazole Sodium 80 mg/ (Sodium Chloride) 100 mls @ 10 mls/hr IV Q10H [facility] Last Admin: 05/22/19 16:38 Dose: 10 mls/hr Sodium Chloride (Normal Saline) Confirm Administered Dose 250 mls @ as directed .ROUTE .STK-MED ONE Stop: 05/22/19 20:12 Last Admin: 05/22/19 20:53 Dose: Not Given Sodium Chloride (Normal Saline) 250 mls @ 100 mls/hr IV ONETIME ONE Stop: 05/22/19 23:14 Last Admin: 05/22/19 20:23 Dose: 100 mls/hr Pantoprazole Sodium (Protonix Iv) 40 mg IVPUSH ONETIME ONE Stop: 05/22/19 15:23 Last Admin: 05/22/19 16:37 Dose: 40 mg Sepsis Event Note - Evaluation Sepsis Screening Result: No Definite Risk - Focused Exam Vital Signs: Vital Signs Temp Temp Pulse Resp BP BP Pulse Ox 05/23/19 08:00 98.0 F 16 124/56 L 100 05/23/19 06:00 64 106/61 97 05/23/19 05:59 64 97 05/23/19 05:01 58 L 98 05/23/19 05:00 58 L 102/53 L 97 05/23/19 04:59 62 97 05/23/19 04:01 60 99 05/23/19 04:00 97.2 F 97.2 F 74 18 121/72 121/72 100 05/23/19 03:59 62 100 05/23/19 03:01 63 100 05/23/19 03:00 61 101/54 L 100 05/23/19 02:59 63 100 05/23/19 02:32 70 95/59 L 98 05/23/19 02:31 73 97 05/23/19 02:07 66 93/49 L 92 L 05/23/19 02:06 63 95 05/23/19 02:01 66 93 L 05/23/19 02:00 69 91/54 L 95 05/23/19 01:59 70 94 L 05/23/19 01:01 72 96/54 L 99 05/23/19 01:00 71 99 05/23/19 00:31 70 100/53 L 99 05/23/19 00:30 69 99 05/23/19 00:14 69 100/55 L 100 05/23/19 00:13 72 100 05/23/19 00:01 70 95/53 L 100 05/23/19 00:00 97.5 F 97.5 F 67 18 100/55 L 100/55 L 100 05/22/19 23:31 69 92/52 L 100 05/22/19 23:30 64 100 05/22/19 23:01 67 102/52 L 100 05/22/19 23:00 71 99 05/22/19 22:54 71 104/57 L 100 05/22/19 22:53 72 100 05/22/19 22:31 100/51 L 05/22/19 22:30 81 99 05/22/19 22:16 77 99/55 L 99 05/22/19 22:15 77 100 05/22/19 22:01 74 98 05/22/19 22:00 73 95/52 L 98 05/22/19 21:59 74 99 05/22/19 21:53 77 96 05/22/19 21:51 78 98/53 L 100 05/22/19 21:50 76 100 05/22/19 21:45 71 93/48 L 94 L 05/22/19 21:44 72 90 L Date Exam was Performed: 05/23/19 Time Exam was Performed: 09:30 - Problem List & Annotations (1) Upper GI bleed SNOMED Code(s): 74150071 Code(s): K92.2 - GASTROINTESTINAL HEMORRHAGE, UNSPECIFIED Status: Acute Current Visit: Yes (2) Acute posthemorrhagic anemia SNOMED Code(s): 991037970 Code(s): D62 - ACUTE POSTHEMORRHAGIC ANEMIA Status: Acute Current Visit: Yes (3) History of Helicobacter pylori infection SNOMED Code(s): 49034597452061019 Code(s): Z86.19 - PERSONAL HISTORY OF OTHER INFECTIOUS AND PARASITIC DISEASES Status: Acute Current Visit: Yes (4) Dyslipidemia SNOMED Code(s): 339647310 Code(s): E78.5 - HYPERLIPIDEMIA, UNSPECIFIED Status: Acute Current Visit : Yes - My Orders Last 24 Hours: My Active Orders 05/22/19 19:08 Ambulate [RC] ASDIRECTED Height and Weight [RC] 04 Oxygen Therapy [RC] PRN VTE/DVT Education [RC] BID Vital Signs [RC] Q4HR Morphine 1 mg IVPUSH Q8H PRN Resuscitation Status Routine 05/22/19 19:10 Cardiac Monitoring [RC] CONTINUOUS Intake and Output [RC] 04,16 Pulse Oximetry [RC] CONTINUOUS 05/22/19 19:11 Antiembolic Hose [OM.PC] Per Unit Routine 05/22/19 19:14 Antiembolic Devices [RC] BID 05/22/19 19:15 Lactated Ringers [Ringers, Lactated] 1,000 ml IV ASDIRECTED 05/22/19 21:00 Pantoprazole [ProTONIX IV] 40 mg IV Q12HR 05/23/19 Breakfast Nothing per Oral Now Diet [DIET] - Plan Plan:: Upper GI bleed Acute posthemorrhagic anemia History of Helicobacter pylori infection Comes in with black stools and abdominal pain for 5 days, never happened before Associated with lightheadedness Previous colonoscopy 5 years ago with removal of some polyps, told to return in 5 years Frequent blood donor, x3 last year, no donations this year Used to be on biweekly iron supplementation--> discontinued by PCP 03/2019 Hb in March Recent shoulder dislocation for which she has been taking Aleve at least once a day as well as Tylenol Diagnosed with H. pylori infection approximately 10 years ago, treated but eradication was not confirmed Denies any history of hemorrhoids Menses has increased in flow but has been irregular for almost a year, every 1- 3 months--> LMP 03/26-03/29--> available outpatient blood work on 03/29 No family history of cancer 1 prior abdominal surgery, appendectomy >20 years ago Never smoker and very seldom drinker (1-2 beers/week) Admission Hb 7.1 PLAN - Pantoprazole 40mg IV Q12h - Scheduled CBC every 6 hours - Transfuse if hemoglobin less than 7 - Surgery consult - NPO until procedure Dyslipidemia No acute issues Unable to tolerate statins due to myalgias On Pravastatin 2/week and Ezetimibe PLAN - Continue once able to take PO PROPHYLAXIS DVT- compression stockings, pharmacologic contraindicated due to active bleed GI- scheduled pantoprazole for primary problem CODE STATUS: FULL CODE DISPOSITION: Patient will be admitted on scheduled IV Protonix, surgery consulted and will scope patient in AM. SOCIAL: She lives in [place], in a house with her Never smoker Seldom drinks 1-2 beers/week PCP is Dr. Bal
[2019-05-23] MEDS: Pantoprazole 40 MG Vial IV SCH ×2 (10:05→20:20)
[2019-05-23] MEDS ORDERED: Propofol 200 MG/20 ML SDV ONE ×2 (12:23→13:31)
[2019-05-23] MEDS ORDERED: Lidocaine 1% 4 ML ONE (12:23)
[2019-05-23] MEDS ORDERED: EPINEPHrine 1 MG/ML SDV ONE (13:32)
--- NOTE | 2019-05-23 14:09 | PCM.OPNOTE ---
- General Post-Op/Procedure Note Date of Surgery/Procedure: 05/23/19 Operative Procedure(s): EGD with intervention Findings: Bleeding ulceration in the duodenum with adherent clot in the gastric cardia and evidence of healing ulceration on the greater curvature. Pre Op Diagnosis: upper GI bleed Post-Op Diagnosis: same Anesthesia Technique: MAC Primary Surgeon: Aminata Blanchard Pathology: gastric antrum Fluid Replacement, Intraop: 800 Output, Urine Amount: 0 EBL in mLs: 0 Complications: none apparent Condition: Good Free Text/Narrative:: Intake & Output 05/22/19 05/23/19 05/23/19 22:59 06:59 14:59 Intake Total 327 1102 Output Total 400 750 600 Balance -73 352 -600
--- NOTE | 2019-05-23 14:12 | PCM48HPAN ---
Post Anesthesia Note - EVALUATION WITHIN 48HRS OF ANESTHETIC Vital Signs in Normal Range: Yes Patient Participated in Evaluation: Yes Respiratory Function Stable: Yes Airway Patent: Yes Cardiovascular Function Stable: Yes Hydration Status Stable: Yes Pain Control Satisfactory: Yes Nausea and Vomiting Control Satisfactory: Yes Mental Status Recovered: Yes Vital Signs: Last Vital Signs Temp 98.0 F 05/23/19 08:00 Pulse 64 05/23/19 06:00 Resp 16 05/23/19 08:00 BP 124/56 L 05/23/19 08:00 Pulse Ox 100 05/23/19 08:00 Orthostatic Blood Pressure [ 98/65 Standing] Orthostatic Blood Pressure [ 108/67 Sitting] Orthostatic Blood Pressure [ 105/67 Supine] Post procedure VSs at 14:03 BP:116/74, HR: 68, RR: 16, SpO2: 99% RA, T: 97.5 F
--- NOTE | 2019-05-23 14:13 | PCM.PRNOTE ---
- Free Text/Narrative Note: Operative Report Date of procedure: May 23 2019 Preoperative diagnosis: Upper GI bleed Postoperative diagnosis: Same Surgeon: Aminata Blanchard M.D. Procedure: EGD with intervention Anesthesia: MAC Anesthesiologist: Kathy Dougherty CRNA IV fluids: 800 mL Estimated blood loss: 0 mL Specimens: Gastric antrum. Indication: The patient is a 54 -year-old lady who presented to the emergency department with findings of upper GI bleed. The patient's main complaint was dizziness, melena and abdominal pain. She was admitted to the ICU. The patient was consented for an EGD with intervention. Risk of bleeding and perforation were discussed. The patient's consent was obtained Description of the procedure: The patient was taken to the endoscopy suite and placed on hemodynamic monitoring. The nurse band master induced MAC anesthesia. A bite block was placed. The patient was positioned in the left lateral decubitus position. A timeout was performed. The endoscope was gently placed into the mouth to the back of the pharynx and introduced into the esophagus. The scope was gently advanced under direct visualization down to the level of the lower esophageal sphincter. The stomach was then entered. Normal rugal folds were noted. The scope was advanced into the antrum. We noted gastritis with erythema in the stomach. The pylorus was then entered and the first and second portion of the duodenum was inspected. We did note some blood in the duodenum. On closer inspection there was a bleeding ulceration at the curve of the duodenal bulb to the first portion of the duodenum. 2 clips were placed in this area. Epinephrine was also injected into the mucosa to help with hemostasis. There was improvement with the bleeding to a very slow ooze at the end of the mention. The scope was retroflexed in the cardia and fundus were investigated. There was adherent clot that was removed over an area of gastritis at the top of the gastric body. There is also evidence of healing ulceration at the superior portion of the greater curve. Biopsies were taken in the antrum using cold biopsy forceps for H. pylori given the patient's history of H. pylori. Scope was then removed into the esophagus. Was a 3 to 4 cm sliding hiatal hernia in this area. No other abnormalities were noted. The GE junction was regular in appearance. The scope was then withdrawn while inspecting the esophagus. There were patchy small areas of esophagitis near the GE junction as well as one linear stripe of esophagitis approximately 5 cm in the distal esophagus which was less than 1 fold. The procedure was terminated. the patient tolerated the procedure well without any evidence of complications. Instructions: The patient will return to the floor and continue hemoglobin monitoring every 6 hours. May resume clear liquid diet and advance as tolerated once hemoglobin has been stable for 8 to 12 hours. She will be maintained on a PPI. Plan for reevaluation with repeat scope in approximately 4-6 weeks. Aminata Blanchard MD General Surgery
--- NOTE | 2019-05-23 14:44 | PCM.PN ---
- General Info Date of Service: 05/23/19 - Patient Data Vitals - Most Recent: Last Vital Signs Temp 97.5 F 05/23/19 14:14 Pulse 66 05/23/19 14:14 Resp 16 05/23/19 14:14 BP 116/74 05/23/19 14:14 Pulse Ox 99 05/23/19 14:14 Orthostatic Blood Pressure [ 98/65 Standing] Orthostatic Blood Pressure [ 108/67 Sitting] Orthostatic Blood Pressure [ 105/67 Supine] Weight - Most Recent: 92.442 kg I&O - Last 24 Hours: Intake & Output 05/22/19 05/23/19 05/23/19 22:59 06:59 14:59 Intake Total 327 1102 800 Output Total 400 750 600 Balance -73 352 200 Lab Results Last 24 Hours: Laboratory Results - last 24 hr 05/22/19 05/22/19 05/22/19 Range/Units 16:45 16:45 16:45 WBC 8.38 (3.98-10.04) K/mm3 RBC 2.56 L (3.98-5.22) M/mm3 Hgb 7.1 L* (11.2-15.7) gm/dl Hct 22.6 L (34.1-44.9) % MCV 88.3 (79.4-94.8) fl MCH 27.7 (25.6-32.2) pg MCHC 31.4 L (32.2-35.5) g/dl RDW Std Deviation 49.6 H (36.4-46.3) fL Plt Count 310 (182-369) K/mm3 MPV 9.2 L (9.4-12.3) fl Neut % (Auto) 50.8 (34.0-71.1) % Lymph % (Auto) 39.0 (19.3-51.7) % [place] % (Auto) 7.4 (4.7-12.5) % Eos % (Auto) 2.0 (0.7-5.8) Baso % (Auto) 0.4 (0.1-1.2) % Neut # (Auto) 4.26 (1.56-6.13) K/mm3 Lymph # (Auto) 3.27 (1.18-3.74) K/mm3 [place] # (Auto) 0.62 H (0.24-0.36) K/mm3 Eos # (Auto) 0.17 (0.04-0.36) K/mm3 Baso # (Auto) 0.03 (0.01-0.08) K/mm3 Neutrophils % (Manual) (40-60) % Band Neutrophils % (0-10) % Lymphocytes % (Manual) (20-40) % Atypical Lymphs % % Monocytes % (Manual) (2-10) % Eosinophils % (Manual) (0.7-5.8) % Basophils % (Manual) (0.1-1.2) Manual Slide Review Abnormal smear Platelet Estimate Polychromasia Hypochromasia RBC Morph Comment ESR (0-20) mm/hr PT 10.8 (9.7-12.0) SECONDS INR 0.99 APTT 22 (22-31) SECONDS Sodium 138 (136-145) mEq/L Potassium 3.6 (3.5-5.1) mEq/L Chloride 103 (98-107) mEq/L Carbon Dioxide 26 (21-32) mEq/L Anion Gap 12.6 (5-15) BUN 13 (7-18) mg/dL Creatinine 0.8 (0.55-1.02) mg/dL Est Cr Clr Drug Dosing 77.27 mL/min Estimated GFR (MDRD) > 60 (>60) mL/min BUN/Creatinine Ratio 16.3 (14-18) Glucose 125 H (74-106) mg/dL Calcium 8.5 (8.5-10.1) mg/dL Phosphorus (2.6-4.7) mg/dL Magnesium 2.2 (1.8-2.4) mg/dl Total Bilirubin 0.3 (0.2-1.0) mg/dL AST 15 (15-37) U/L ALT 25 (14-59) U/L Alkaline Phosphatase 40 L (46-116) U/L Total Protein 6.4 (6.4-8.2) g/dl Albumin 3.3 L (3.4-5.0) g/dl Globulin 3.1 gm/dL Albumin/Globulin Ratio 1.1 (1-2) Lipase 128 (73-393) U/L Urine Color (Yellow) Urine Appearance (Clear) Urine pH (5.0-8.0) Ur Specific [place] (1.005-1.030) Urine Protein (Negative) Urine Glucose (UA) (Negative) Urine Ketones (Negative) Urine Occult Blood (Negative) Urine Nitrite (Negative) Urine Bilirubin (Negative) Urine Urobilinogen (0.2-1.0) Ur Leukocyte Esterase (Negative) Urine RBC (0-5) /hpf Urine WBC (0-5) /hpf Ur Squamous Epith Cells (0-5) /hpf Urine Bacteria (FEW) /hpf Urine Mucus (FEW) /hpf Blood Type Gel Antibody Screen Crossmatch 05/22/19 05/22/19 05/22/19 Range/Units 16:45 16:45 17:30 WBC (3.98-10.04) K/mm3 RBC (3.98-5.22) M/mm3 Hgb (11.2-15.7) gm/dl Hct (34.1-44.9) % MCV (79.4-94.8) fl MCH (25.6-32.2) pg MCHC (32.2-35.5) g/dl RDW Std Deviation (36.4-46.3) fL Plt Count (182-369) K/mm3 MPV (9.4-12.3) fl Neut % (Auto) (34.0-71.1) % Lymph % (Auto) (19.3-51.7) % [place] % (Auto) (4.7-12.5) % Eos % (Auto) (0.7-5.8) Baso % (Auto) (0.1-1.2) % Neut # (Auto) (1.56-6.13) K/mm3 Lymph # (Auto) (1.18-3.74) K/mm3 [place] # (Auto) (0.24-0.36) K/mm3 Eos # (Auto) (0.04-0.36) K/mm3 Baso # (Auto) (0.01-0.08) K/mm3 Neutrophils % (Manual) (40-60) % Band Neutrophils % (0-10) % Lymphocytes % (Manual) (20-40) % Atypical Lymphs % % Monocytes % (Manual) (2-10) % Eosinophils % (Manual) (0.7-5.8) % Basophils % (Manual) (0.1-1.2) Manual Slide Review Platelet Estimate Polychromasia Hypochromasia RBC Morph Comment ESR 22 H (0-20) mm/hr PT (9.7-12.0) SECONDS INR APTT (22-31) SECONDS Sodium (136-145) mEq/L Potassium (3.5-5.1) mEq/L Chloride (98-107) mEq/L Carbon Dioxide (21-32) mEq/L Anion Gap (5-15) BUN (7-18) mg/dL Creatinine (0.55-1.02) mg/dL Est Cr Clr Drug Dosing mL/min Estimated GFR (MDRD) (>60) mL/min BUN/Creatinine Ratio (14-18) Glucose (74-106) mg/dL Calcium (8.5-10.1) mg/dL Phosphorus (2.6-4.7) mg/dL Magnesium (1.8-2.4) mg/dl Total Bilirubin (0.2-1.0) mg/dL AST (15-37) U/L ALT (14-59) U/L Alkaline Phosphatase (46-116) U/L Total Protein (6.4-8.2) g/dl Albumin (3.4-5.0) g/dl Globulin gm/dL Albumin/Globulin Ratio (1-2) Lipase (73-393) U/L Urine Color Light yellow (Yellow) Urine Appearance Clear (Clear) Urine pH 6.5 (5.0-8.0) Ur Specific [place] 1.020 (1.005-1.030) Urine Protein Negative (Negative) Urine Glucose (UA) Negative (Negative) Urine Ketones Trace H (Negative) Urine Occult Blood Trace-intact H (Negative) Urine Nitrite Negative (Negative) Urine Bilirubin Negative (Negative) Urine Urobilinogen 0.2 (0.2-1.0) Ur Leukocyte Esterase Trace H (Negative) Urine RBC 0-5 (0-5) /hpf Urine WBC 0-5 (0-5) /hpf Ur Squamous Epith Cells 10-20 H (0-5) /hpf Urine Bacteria Rare (FEW) /hpf Urine Mucus Not seen (FEW) /hpf Blood Type O POSITIVE Gel Antibody Screen Negative Crossmatch See Detail 05/22/19 05/22/19 05/23/19 Range/Units 19:25 23:45 04:12 WBC 8.23 (3.98-10.04) K/mm3 RBC 2.31 L (3.98-5.22) M/mm3 Hgb 6.4 L* 7.4 L (11.2-15.7) gm/dl Hct 20.3 L (34.1-44.9) % MCV 87.9 (79.4-94.8) fl MCH 27.7 (25.6-32.2) pg MCHC 31.5 L (32.2-35.5) g/dl RDW Std Deviation 48.6 H (36.4-46.3) fL Plt Count 273 (182-369) K/mm3 MPV 8.6 L (9.4-12.3) fl Neut % (Auto) (34.0-71.1) % Lymph % (Auto) (19.3-51.7) % [place] % (Auto) (4.7-12.5) % Eos % (Auto) (0.7-5.8) Baso % (Auto) (0.1-1.2) % Neut # (Auto) (1.56-6.13) K/mm3 Lymph # (Auto) (1.18-3.74) K/mm3 [place] # (Auto) (0.24-0.36) K/mm3 Eos # (Auto) (0.04-0.36) K/mm3 Baso # (Auto) (0.01-0.08) K/mm3 Neutrophils % (Manual) (40-60) % Band Neutrophils % (0-10) % Lymphocytes % (Manual) (20-40) % Atypical Lymphs % % Monocytes % (Manual) (2-10) % Eosinophils % (Manual) (0.7-5.8) % Basophils % (Manual) (0.1-1.2) Manual Slide Review Platelet Estimate Polychromasia Hypochromasia RBC Morph Comment ESR (0-20) mm/hr PT (9.7-12.0) SECONDS INR APTT (22-31) SECONDS Sodium (136-145) mEq/L Potassium (3.5-5.1) mEq/L Chloride (98-107) mEq/L Carbon Dioxide (21-32) mEq/L Anion Gap (5-15) BUN (7-18) mg/dL Creatinine (0.55-1.02) mg/dL Est Cr Clr Drug Dosing mL/min Estimated GFR (MDRD) (>60) mL/min BUN/Creatinine Ratio (14-18) Glucose (74-106) mg/dL Calcium (8.5-10.1) mg/dL Phosphorus 3.8 (2.6-4.7) mg/dL Magnesium 2.1 (1.8-2.4) mg/dl Total Bilirubin (0.2-1.0) mg/dL AST (15-37) U/L ALT (14-59) U/L Alkaline Phosphatase (46-116) U/L Total Protein (6.4-8.2) g/dl Albumin (3.4-5.0) g/dl Globulin gm/dL Albumin/Globulin Ratio (1-2) Lipase (73-393) U/L Urine Color (Yellow) Urine Appearance (Clear) Urine pH (5.0-8.0) Ur Specific [place] (1.005-1.030) Urine Protein (Negative) Urine Glucose (UA) (Negative) Urine Ketones (Negative) Urine Occult Blood (Negative) Urine Nitrite (Negative) Urine Bilirubin (Negative) Urine Urobilinogen (0.2-1.0) Ur Leukocyte Esterase (Negative) Urine RBC (0-5) /hpf Urine WBC (0-5) /hpf Ur Squamous Epith Cells (0-5) /hpf Urine Bacteria (FEW) /hpf Urine Mucus (FEW) /hpf Blood Type Gel Antibody Screen Crossmatch 05/23/19 05/23/19 Range/Units 04:12 08:02 WBC 5.87 (3.98-10.04) K/mm3 RBC 2.54 L (3.98-5.22) M/mm3 Hgb 7.1 L* 8.1 L (11.2-15.7) gm/dl Hct 22.2 L (34.1-44.9) % MCV 87.4 (79.4-94.8) fl MCH 28.0 (25.6-32.2) pg MCHC 32.0 L (32.2-35.5) g/dl RDW Std Deviation 48.8 H (36.4-46.3) fL Plt Count 262 (182-369) K/mm3 MPV 8.9 L (9.4-12.3) fl Neut % (Auto) (34.0-71.1) % Lymph % (Auto) (19.3-51.7) % [place] % (Auto) (4.7-12.5) % Eos % (Auto) (0.7-5.8) Baso % (Auto) (0.1-1.2) % Neut # (Auto) (1.56-6.13) K/mm3 Lymph # (Auto) (1.18-3.74) K/mm3 [place] # (Auto) (0.24-0.36) K/mm3 Eos # (Auto) (0.04-0.36) K/mm3 Baso # (Auto) (0.01-0.08) K/mm3 Neutrophils % (Manual) 42 (40-60) % Band Neutrophils % 0 (0-10) % Lymphocytes % (Manual) 51 H (20-40) % Atypical Lymphs % 0 % Monocytes % (Manual) 3 (2-10) % Eosinophils % (Manual) 3 (0.7-5.8) % Basophils % (Manual) 1 (0.1-1.2) Manual Slide Review Platelet Estimate Adequate Polychromasia 1+ slight Hypochromasia 1+ slight RBC Morph Comment Not Reportable ESR (0-20) mm/hr PT (9.7-12.0) SECONDS INR APTT (22-31) SECONDS Sodium (136-145) mEq/L Potassium (3.5-5.1) mEq/L Chloride (98-107) mEq/L Carbon Dioxide (21-32) mEq/L Anion Gap (5-15) BUN (7-18) mg/dL Creatinine (0.55-1.02) mg/dL Est Cr Clr Drug Dosing mL/min Estimated GFR (MDRD) (>60) mL/min BUN/Creatinine Ratio (14-18) Glucose (74-106) mg/dL Calcium (8.5-10.1) mg/dL Phosphorus (2.6-4.7) mg/dL Magnesium (1.8-2.4) mg/dl Total Bilirubin (0.2-1.0) mg/dL AST (15-37) U/L ALT (14-59) U/L Alkaline Phosphatase (46-116) U/L Total Protein (6.4-8.2) g/dl Albumin (3.4-5.0) g/dl Globulin gm/dL Albumin/Globulin Ratio (1-2) Lipase (73-393) U/L Urine Color (Yellow) Urine Appearance (Clear) Urine pH (5.0-8.0) Ur Specific [place] (1.005-1.030) Urine Protein (Negative) Urine Glucose (UA) (Negative) Urine Ketones (Negative) Urine Occult Blood (Negative) Urine Nitrite (Negative) Urine Bilirubin (Negative) Urine Urobilinogen (0.2-1.0) Ur Leukocyte Esterase (Negative) Urine RBC (0-5) /hpf Urine WBC (0-5) /hpf Ur Squamous Epith Cells (0-5) /hpf Urine Bacteria (FEW) /hpf Urine Mucus (FEW) /hpf Blood Type Gel Antibody Screen Crossmatch Med Orders - Current: Current Medications Lactated Ringer's (Ringers, Lactated) 1,000 mls @ 125 mls/hr IV ASDIRECTED [facility] Last Admin: 05/23/19 04:05 Dose: 125 mls/hr Morphine Sulfate (Morphine) 1 mg IVPUSH Q8H PRN PRN Reason: Pain (severe 7-10) Stop: 05/23/19 19:11 Pantoprazole Sodium (Protonix Iv) 40 mg IV Q12HR [facility] Last Admin: 05/23/19 10:05 Dose: 40 mg Discontinued Medications Epinephrine HCl (Adrenalin) Confirm Administered Dose 1 mg .ROUTE .STK-MED ONE Stop: 05/23/19 13:33 Dextrose/Sodium Chloride (Dextrose 5%-Normal Saline) 1,000 mls @ 500 mls/hr IV ASDIRECTED [facility] Last Admin: 05/22/19 16:37 Dose: 500 mls/hr Pantoprazole Sodium 80 mg/ (Sodium Chloride) 100 mls @ 10 mls/hr IV Q10H [facility] Last Admin: 05/22/19 16:38 Dose: 10 mls/hr Sodium Chloride (Normal Saline) Confirm Administered Dose 250 mls @ as directed .ROUTE .STK-MED ONE Stop: 05/22/19 20:12 Last Admin: 05/22/19 20:53 Dose: Not Given Sodium Chloride (Normal Saline) 250 mls @ 100 mls/hr IV ONETIME ONE Stop: 05/22/19 23:14 Last Admin: 05/22/19 20:23 Dose: 100 mls/hr Lidocaine HCl (Xylocaine-Mpf 1%) Confirm Administered Dose 4 mls @ as directed .ROUTE .STK-MED ONE Stop: 05/23/19 12:24 Pantoprazole Sodium (Protonix Iv) 40 mg IVPUSH ONETIME ONE Stop: 05/22/19 15:23 Last Admin: 05/22/19 16:37 Dose: 40 mg Propofol (Diprivan 20 Ml) Confirm Administered Dose 400 mg .ROUTE .STK-MED ONE Stop: 05/23/19 12:24 Propofol (Diprivan 20 Ml) Confirm Administered Dose 200 mg .ROUTE .STK-MED ONE Stop: 05/23/19 13:32 Sepsis Event Note - Evaluation Sepsis Screening Result: No Definite Risk - Focused Exam Vital Signs: Vital Signs Temp Temp Pulse Pulse Resp BP BP 05/23/19 14:14 97.5 F 66 16 116/74 05/23/19 08:00 98.0 F 16 124/56 L 05/23/19 06:00 64 106/61 05/23/19 05:59 64 05/23/19 05:01 58 L 05/23/19 05:00 58 L 102/53 L 05/23/19 04:59 62 05/23/19 04:01 60 05/23/19 04:00 97.2 F 97.2 F 74 18 121/72 121/72 05/23/19 03:59 62 05/23/19 03:01 63 05/23/19 03:00 61 101/54 L 05/23/19 02:59 63 Pulse Ox 05/23/19 14:14 99 05/23/19 08:00 100 05/23/19 06:00 97 05/23/19 05:59 97 05/23/19 05:01 98 05/23/19 05:00 97 05/23/19 04:59 97 05/23/19 04:01 99 05/23/19 04:00 100 05/23/19 03:59 100 05/23/19 03:01 100 05/23/19 03:00 100 05/23/19 02:59 100 Date Exam was Performed: 05/23/19 Time Exam was Performed: 14:44 - Problem List & Annotations (1) Upper GI bleed SNOMED Code(s): 47962283 Code(s): K92.2 - GASTROINTESTINAL HEMORRHAGE, UNSPECIFIED Status: Acute Current Visit: Yes (2) Acute posthemorrhagic anemia SNOMED Code(s): 062960456 Code(s): D62 - ACUTE POSTHEMORRHAGIC ANEMIA Status: Acute Current Visit: Yes (3) History of Helicobacter pylori infection SNOMED Code(s): 35078897740320972 Code(s): Z86.19 - PERSONAL HISTORY OF OTHER INFECTIOUS AND PARASITIC DISEASES Status: Acute Current Visit: Yes (4) Dyslipidemia SNOMED Code(s): 153896959 Code(s): E78.5 - HYPERLIPIDEMIA, UNSPECIFIED Status: Acute Current Visit : Yes - My Orders Last 24 Hours: My Active Orders 05/22/19 19:08 Ambulate [RC] ASDIRECTED Height and Weight [RC] 04 Oxygen Therapy [RC] PRN VTE/DVT Education [RC] BID Vital Signs [RC] 03,09,15,21 Morphine 1 mg IVPUSH Q8H PRN Resuscitation Status Routine 05/22/19 19:10 Cardiac Monitoring [RC] CONTINUOUS Intake and Output [RC] 04,16 Pulse Oximetry [RC] CONTINUOUS 05/22/19 19:11 Antiembolic Hose [OM.PC] Per Unit Routine 05/22/19 19:14 Antiembolic Devices [RC] BID 05/22/19 19:15 Lactated Ringers [Ringers, Lactated] 1,000 ml IV ASDIRECTED 05/22/19 21:00 Pantoprazole [ProTONIX IV] 40 mg IV Q12HR 05/23/19 09:45 Patient Status [ADT] Routine 05/23/19 Breakfast Nothing per Oral Now Diet [DIET] - Plan Plan:: Upper GI bleed Acute posthemorrhagic anemia History of Helicobacter pylori infection Comes in with black stools and abdominal pain for 5 days, never happened before Associated with lightheadedness Previous colonoscopy 5 years ago with removal of some polyps, told to return in 5 years Frequent blood donor, x3 last year, no donations this year Used to be on biweekly iron supplementation--> discontinued by PCP 03/2019 Hb in March labs 13 Recent shoulder dislocation for which she has been taking Aleve at least once a day as well as Tylenol Diagnosed with H. pylori infection approximately 10 years ago, treated but eradication was not confirmed Denies any history of hemorrhoids Menses has increased in flow but has been irregular for almost a year, every 1- 3 months--> LMP 03/26-03/29--> available outpatient blood work on 03/29 No family history of cancer 1 prior abdominal surgery, appendectomy >20 years ago Never smoker and very seldom drinker (1-2 beers/week) Admission Hb 7.1 PLAN - Pantoprazole 40mg IV Q12h - Scheduled CBC every 6 hours - Transfuse if hemoglobin less than 7 - Surgery consult - NPO until procedure Dyslipidemia No acute issues Unable to tolerate statins due to myalgias On Pravastatin 2/week and Ezetimibe PLAN - Continue once able to take PO PROPHYLAXIS DVT- compression stockings, pharmacologic contraindicated due to active bleed GI- scheduled pantoprazole for primary problem CODE STATUS: FULL CODE DISPOSITION: Patient will be admitted on scheduled IV Protonix, surgery consulted and will scope patient in AM. SOCIAL: She lives in [place], in a house with her Never smoker Seldom drinks 1-2 beers/week PCP is Dr. Bal
--- NOTE | 2019-05-23 16:33 | PCM.PN ---
- General Info Date of Service: 05/24/19 Subjective Update: Feeling ok Slept OK No BM since prior to admission No complaints - Patient Data Vitals - Most Recent: Last Vital Signs Temp 97.5 F 05/23/19 14:14 Pulse 67 05/23/19 16:00 Resp 16 05/23/19 15:00 BP 115/59 L 05/23/19 16:00 Pulse Ox 97 05/23/19 16:00 Weight - Most Recent: 92.442 kg - Exam General: Alert, Oriented, Cooperative, No Acute Distress HEENT: Pupils Equal, Pupils Reactive, EOMI, Mucous Membr. Moist/[place] Neck: Supple, Trachea Midline, No JVD, No Thyromegaly, +2 Carotid Pulse wo Bruit Lungs: Clear to Auscultation, Normal Respiratory Effort. No: Crackles, Rales, Rhonchi, Rub, Wheezing Cardiovascular: Regular Rate, Regular Rhythm. No: Murmurs, Gallops, Rubs GI/Abdominal Exam: Normal Bowel Sounds, Soft, Non-Tender. No: Distended, Guarding, Rigid, Rebound Back Exam: Normal Inspection, Full Range of Motion. No: CVA Tenderness (L), CVA Tenderness (R), Paraspinal Tenderness, Vertebral Tenderness Extremities: Normal Inspection, Normal Range of Motion, Non-Tender, No Pedal Edema, Normal Capillary Refill Neurological: No New Focal Deficit Psy/Mental Status: Alert Sepsis Event Note - Evaluation Sepsis Screening Result: No Definite Risk - Focused Exam Vital Signs: Vital Signs Temp Pulse Pulse Resp BP BP Pulse Ox 05/23/19 16:00 67 115/59 L 97 05/23/19 15:30 70 113/70 95 05/23/19 15:00 60 16 122/82 100 05/23/19 14:30 65 122/82 98 05/23/19 14:14 97.5 F 66 16 116/74 99 05/23/19 14:05 70 116/74 100 05/23/19 08:00 98.0 F 16 124/56 L 100 05/23/19 06:00 64 106/61 97 05/23/19 05:59 64 97 05/23/19 05:01 58 L 98 05/23/19 05:00 58 L 102/53 L 97 05/23/19 04:59 62 97 Date Exam was Performed: 05/24/19 Time Exam was Performed: 16:44 - Problem List & Annotations (1) Upper GI bleed SNOMED Code(s): 92953029 Code(s): K92.2 - GASTROINTESTINAL HEMORRHAGE, UNSPECIFIED Status: Acute Current Visit: Yes (2) Acute posthemorrhagic anemia SNOMED Code(s): 951808827 Code(s): D62 - ACUTE POSTHEMORRHAGIC ANEMIA Status: Acute Current Visit: Yes (3) History of Helicobacter pylori infection SNOMED Code(s): 21920448368050791 Code(s): Z86.19 - PERSONAL HISTORY OF OTHER INFECTIOUS AND PARASITIC DISEASES Status: Acute Current Visit: Yes (4) Dyslipidemia SNOMED Code(s): 454798023 Code(s): E78.5 - HYPERLIPIDEMIA, UNSPECIFIED Status: Acute Current Visit : Yes - Problem List Review Problem List Initiated/Reviewed/Updated: Yes - Plan Plan:: Upper GI bleed Acute posthemorrhagic anemia History of Helicobacter pylori infection Comes in with black stools and abdominal pain for 5 days, never happened before Associated with lightheadedness Previous colonoscopy 5 years ago with removal of some polyps, told to return in 5 years Admission Hb 7.1--> repeat 6.4--> transfused 1u PRBC--> repeat stable PLAN - Pantoprazole 40mg IV Q12h - Scheduled CBC every 4 hours - Transfuse if hemoglobin less than 7 - EGD today - NPO until procedure Dyslipidemia No acute issues Unable to tolerate statins due to myalgias On Pravastatin 2/week and Ezetimibe PLAN - Continue once able to take PO PROPHYLAXIS DVT- compression stockings, pharmacologic contraindicated due to active bleed GI- scheduled pantoprazole for primary problem CODE STATUS: FULL CODE DISPOSITION: Patient will remain admitted on scheduled IV Protonix, surgery will take to EGD today SOCIAL: She lives in [place], in a house with her Never smoker Seldom drinks 1-2 beers/week PCP is Dr. Bal
[2019-05-24] MEDS: Lactated Ringers 1,000 ML IV SCH (02:41)
[2019-05-24] MEDS: Pantoprazole 40 MG Vial IV SCH (09:07)
--- NOTE | 2019-05-24 16:13 | PCM.DCSUM1 ---
Discharge Summary - Hospital Course HPI Initial Comments: This is a 54 year old female with past medical history of DLD who comes to the ED complaining of black stools since Tuesday of last week, 5 days. As per patient she was in her usual state of health up until May 12 when she started having severe epigastric pain, graded 10/10, radiating to lower hemiabdomen and back, described as "burning". Pain was mainly associated with intermittent nausea but no other symptoms at that time. The 2 following days she felt OK in the AM, was able to get up and take a shower. Next day she was able to tolerate small bowl of cereal On day 4() she noted that her symptoms were not improving for which she went to walk-in clinic where she was diagnosed with a viral gastroenteritis and prescribed a PRN nausea medication. She went home and took medication, however this produced immediate nausea and she vomited the medication up, made her feel like her stomach was going to explode and foaming at the mouth. She continued to have some burning pain which still got better with getting up and walking. On Day 5( Tuesday) she noted black stools, described as solid initially and then consistency changed and notes water color turned red. she does also note some blood with wiping. 2 days later notes minimal improvement to the point that she was able to eat ( donut/apple sauce/half a burger) without any changes to her pain Yesterday she started feeling lightheaded and with palpitations. She continued to feel "bad" for which she took milk of magnesia, at 3:30AM she had a large BM started out as formed and turned loose, black colored. She noted: - Dislocated her shoulder about 1 week ago and was taking aleve intermittently for pain at least once a day - She had some improvement with voiding urine, also with getting up from laying position. - She has some shills with the pain as well as hot flashes - Dark colored urine which cleared up with fluids last week Diagnosis: Stroke: No - Discharge Data Discharge Date: 05/24/19 Discharge Disposition: Home, Self-Care 01 Condition: Good - Referral to Home Health Primary Care Physician: Alek Moralez MD - Discharge Diagnosis/Problem(s) (1) Upper GI bleed SNOMED Code(s): 72261510 ICD Code: K92.2 - GASTROINTESTINAL HEMORRHAGE, UNSPECIFIED Status: Acute Current Visit: Yes (2) Acute posthemorrhagic anemia SNOMED Code(s): 248300332 ICD Code: D62 - ACUTE POSTHEMORRHAGIC ANEMIA Status: Acute Current Visit : Yes (3) History of Helicobacter pylori infection SNOMED Code(s): 62884558342817472 ICD Code: Z86.19 - PERSONAL HISTORY OF OTHER INFECTIOUS AND PARASITIC DISEASES Status: Acute Current Visit: Yes (4) Dyslipidemia SNOMED Code(s): 350752158 ICD Code: E78.5 - HYPERLIPIDEMIA, UNSPECIFIED Status: Acute Current Visit : Yes (5) Duodenal ulcer SNOMED Code(s): 67797721 ICD Code: K26.9 - DUODENAL ULCER, UNSP ACUTE OR CHRONIC, W/O HEMOR OR PERF Status: Acute Current Visit: Yes (6) Gastric ulcer SNOMED Code(s): 489006768 ICD Code: K25.9 - GASTRIC ULCER, UNSP ACUTE OR CHRONIC, W/O HEMOR OR PERF Status: Acute Current Visit: Yes - Patient Summary/Data Operative Procedure(s) Performed: EGD with intervention Hospital Course: Patient came in to the ED complaining of melena. Found to have Hb of 7.1 in ED with repeat at 6.4 Transfused 1u PRBC Taken to EGD by surgery Found to have actively bleeding duodenal ulcer and non bleeding gastric ulcer Biopsies were taken Patient's hemoglobin remained stable for over 12 hours Tolerated diet Discharged on pantoprazole 40mg IV BID and Iron supplementation q48h to improve absorption. - Patient Instructions Diet: Usual Diet as Tolerated - Discharge Plan *PRESCRIPTION DRUG MONITORING PROGRAM REVIEWED*: Not Applicable *COPY OF PRESCRIPTION DRUG MONITORING REPORT IN PATIENT JACQUES: Not Applicable Prescriptions/Med Rec: Ferrous Sulfate [Iron] 325 mg PO Q48H #15 tablet Pantoprazole [ProTONIX] 40 mg PO BID #60 tab.cr Home Medications: Home Meds Ezetimibe 10 mg PO BEDTIME 05/22/19 [History] Pravastatin [Pravachol] 20 mg PO MOWEFR 05/22/19 [History] Ferrous Sulfate [Iron] 325 mg PO Q48H #15 tablet 05/24/19 [Rx] Pantoprazole [ProTONIX] 40 mg PO BID #60 tab.cr 05/24/19 [Rx] Oxygen Therapy Mode: Room Air Forms: ED Department Discharge Referrals: Aminata Blanchard MD [Physician] - (follow up in 4-6 weeks) Alek Moralez MD [Primary Care Provider] - - Discharge Summary/Plan Comment DC Time >30 min.: Yes - General Info Date of Service: 05/24/19 Subjective Update: Feeling Ok Tolerating diet Slept OK No complaints - Patient Data Vitals - Most Recent: Last Vital Signs Temp 97.2 F 05/24/19 15:00 Pulse 77 05/24/19 15:00 Resp 14 05/24/19 15:00 BP 114/61 05/24/19 15:00 Pulse Ox 96 05/24/19 15:00 Orthostatic Blood Pressure [ 98/65 Standing] Orthostatic Blood Pressure [ 108/67 Sitting] Orthostatic Blood Pressure [ 105/67 Supine] Weight - Most Recent: 92.442 kg - Exam General: Reports: Alert, Oriented, Cooperative, No Acute Distress HEENT: Reports: Pupils Equal, Pupils Reactive, EOMI, Mucous Membr. Moist/[place] Neck: Reports: Supple, Trachea Midline, No JVD, No Thyromegaly Lungs: Reports: Clear to Auscultation, Normal Respiratory Effort. Denies: Crackles, Rales, Rhonchi, Rub, Stridor, Wheezing Cardiovascular: Reports: Regular Rate, Regular Rhythm. Denies: Murmurs, Gallops , Rubs GI/Abdominal Exam: Normal Bowel Sounds, Soft, Non-Tender. No: Distended, Guarding, Rigid, Rebound Back Exam: Reports: Normal Inspection, Full Range of Motion. Denies: CVA Tenderness (L), CVA Tenderness (R), Paraspinal Tenderness, Vertebral Tenderness Extremities: Normal Inspection, Normal Range of Motion, Non-Tender, No Pedal Edema, Normal Capillary Refill Skin: Reports: Warm, Dry, Intact Neurological: Reports: No New Focal Deficit Psy/Mental Status: Reports: Alert, Normal Affect, Normal Mood Discharge Operative/Procedures - Procedures Performed Operations: EGD 05/23/[address] Arais
--- NOTE | 2019-05-24 16:29 | PCM.CONSN ---
- General Info Date of Service: 05/24/19 Subjective Update: Pt feeling well and much better than on admission. Denies any abdominal pain. No bowel movements. Tolerating clears - Patient Data Vitals - Most Recent: Last Vital Signs Temp 36.2 C 05/24/19 15:00 Pulse 77 05/24/19 15:00 Resp 14 05/24/19 15:00 BP 114/61 05/24/19 15:00 Pulse Ox 96 05/24/19 15:00 Orthostatic Blood Pressure [ 98/65 Standing] Orthostatic Blood Pressure [ 108/67 Sitting] Orthostatic Blood Pressure [ 105/67 Supine] Weight - Most Recent: 92.442 kg I&O - Last 24 Hours: Intake & Output 05/24/19 05/24/19 05/24/19 06:59 14:59 22:59 Intake Total 1216 770 Balance 1216 770 Lab Results Last 24 Hours: Laboratory Results - last 24 hr 05/23/19 05/24/19 05/24/19 Range/Units 20:05 00:15 03:55 Hgb 8.0 L 7.6 L 7.7 L (11.2-15.7) gm/dl Hct 24.6 L 23.8 L 24.3 L (34.1-44.9) % 05/24/19 Range/Units 09:50 Hgb 8.3 L (11.2-15.7) gm/dl Hct 26.4 L (34.1-44.9) % Med Orders - Current: Current Medications Pantoprazole Sodium (Protonix) 40 mg PO BID JESSE Discontinued Medications Epinephrine HCl (Adrenalin) Confirm Administered Dose 1 mg .ROUTE .STK-MED ONE Stop: 05/23/19 13:33 Last Admin: 05/23/19 13:30 Dose: 0.1 mg Dextrose/Sodium Chloride (Dextrose 5%-Normal Saline) 1,000 mls @ 500 mls/hr IV ASDIRECTED JESSE Last Admin: 05/22/19 16:37 Dose: 500 mls/hr Pantoprazole Sodium 80 mg/ (Sodium Chloride) 100 mls @ 10 mls/hr IV Q10H JESSE Last Admin: 05/22/19 16:38 Dose: 10 mls/hr Lactated Ringer's (Ringers, Lactated) 1,000 mls @ 125 mls/hr IV ASDIRECTED [facility] Last Admin: 05/24/19 02:41 Dose: 125 mls/hr Sodium Chloride (Normal Saline) Confirm Administered Dose 250 mls @ as directed .ROUTE .STK-MED ONE Stop: 05/22/19 20:12 Last Admin: 05/22/19 20:53 Dose: Not Given Sodium Chloride (Normal Saline) 250 mls @ 100 mls/hr IV ONETIME ONE Stop: 05/22/19 23:14 Last Admin: 05/22/19 20:23 Dose: 100 mls/hr Lidocaine HCl (Xylocaine-Mpf 1%) Confirm Administered Dose 4 mls @ as directed .ROUTE .STK-MED ONE Stop: 05/23/19 12:24 Morphine Sulfate (Morphine) 1 mg IVPUSH Q8H PRN PRN Reason: Pain (severe 7-10) Stop: 05/23/19 19:11 Pantoprazole Sodium (Protonix Iv) 40 mg IVPUSH ONETIME ONE Stop: 05/22/19 15:23 Last Admin: 05/22/19 16:37 Dose: 40 mg Pantoprazole Sodium (Protonix Iv) 40 mg IV Q12HR [facility] Last Admin: 05/24/19 09:07 Dose: 40 mg Propofol (Diprivan 20 Ml) Confirm Administered Dose 400 mg .ROUTE .STK-MED ONE Stop: 05/23/19 12:24 Propofol (Diprivan 20 Ml) Confirm Administered Dose 200 mg .ROUTE .STK-MED ONE Stop: 05/23/19 13:32 - Exam General: Alert Lungs: Normal Respiratory Effort GI/Abdominal Exam: Soft, Non-Tender, No Distention Sepsis Event Note - Evaluation Sepsis Screening Result: No Definite Risk - Focused Exam Vital Signs: Vital Signs Temp Pulse Resp BP Pulse Ox 05/24/19 15:00 36.2 C 77 14 114/61 96 05/24/19 08:08 36.2 C 16 103/48 L 95 Date Exam was Performed: 05/24/19 Time Exam was Performed: 16:27 Consult PN Assessment/Plan Procedures: Procedures ASSAY OF BLOOD/URIC ACID (09/15/18) ASSAY THYROID STIM HORMONE (09/15/18) C-REACTIVE PROTEIN (09/15/18) COMPLETE CBC W/AUTO DIFF WBC (09/15/18) COMPREHEN METABOLIC PANEL (09/15/18) GLYCOSYLATED HEMOGLOBIN TEST (09/15/18) LIPID PANEL (01/08/19) MRI LUMBAR SPINE W/O DYE (05/27/16) ROUTINE VENIPUNCTURE (01/08/19) URINALYSIS AUTO W/O SCOPE (01/08/19) URINALYSIS AUTO W/SCOPE (09/15/18) VITAMIN B-12 (09/15/18) (1) Upper GI bleed SNOMED Code(s): 63619742 Code(s): K92.2 - GASTROINTESTINAL HEMORRHAGE, UNSPECIFIED Current Visit: Yes Problem List Initiated/Reviewed/Updated: Yes Plan: 54 y/o lady with a GI bleed - regular diet as tolerated - will need PPI prophylaxis at discharge Follow up at 4-6 weeks for repeat EGD Aminata Blanchard MD General Surgery
[2019-05-24] MEDS ORDERED: Pantoprazole 40 MG Tab.CR PO SCH (21:00)
== END 2019-05-24 16:50 | disposition home or self-care (01) | DRG 241 ==
LOC: JD.ED 14:22 → JD.ICU 19:00
PROVIDERS: ADMIT Internal Medicine; ATTEND Internal Medicine
PROC: 0DB68ZX Excision of Stomach, Via Natural or Artificial Opening Endoscopic, Diagnostic (ICD-10-PCS; principal; 2019-05-23)
PROC: 30233N1 Transfusion of Nonautologous Red Blood Cells into Peripheral Vein, Percutaneous Approach (ICD-10-PCS; 2019-05-23)
DX: K26.4 Chronic or unspecified duodenal ulcer with hemorrhage (principal); D62 Acute posthemorrhagic anemia; K25.9 Gastric ulcer, unspecified as acute or chronic, without hemorrhage or perforation; E78.5 Hyperlipidemia, unspecified; I25.10 Atherosclerotic heart disease of native coronary artery without angina pectoris; I50.9 Heart failure, unspecified; I11.0 Hypertensive heart disease with heart failure; E11.9 Type 2 diabetes mellitus without complications; E78.00 Pure hypercholesterolemia, unspecified; Z90.49 Acquired absence of other specified parts of digestive tract; Z86.19 Personal history of other infectious and parasitic diseases; Z88.8 Allergy status to other drugs, medicaments and biological substances
CPT/HCPCS: 36415; 36430; 80053; 81001; 83690; 83735; 84100; 85007; 85014; 85018; 85025; 85027; 85610; 85652; 85730; 86850; 86900; 86901; 86922; 93010; 96365; 96366; 99284-25; 99285; C9113; J0171; J2001; J2704; J7042; J7050; J7120; P9016